=== PATIENT | female | born 1985 | race Caucasian/White ===

== ENCOUNTER 2016-07-19 15:33 | Emergency (ER) | payer MEDICAID, OTHER ==
[2016-07-19 15:44] VITALS: BP 123/83
[2016-07-19] MEDS ORDERED: diphenhydrAMINE 50 MG/ML SDV IM ONE (16:23)
[2016-07-19] MEDS ORDERED: Ketorolac 60 MG/2 ML SDV IM ONE (16:23)
[2016-07-19] MEDS ORDERED: Metoclopramide 10 MG/2 ML SDV IM ONE (16:23)
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
[2016-07-19] MEDS ORDERED: Haloperidol Lactate 5 MG/ML SDV IM ONE (17:37)
== END 2016-07-19 18:00 | disposition home or self-care (01) ==
LOC: JD.ED 15:33
DX: G43.909 Migraine, unspecified, not intractable, without status migrainosus (principal); F17.210 Nicotine dependence, cigarettes, uncomplicated; Z79.899 Other long term (current) drug therapy; Z87.440 Personal history of urinary (tract) infections; Z98.890 Other specified postprocedural states; Z90.89 Acquired absence of other organs
CPT/HCPCS: 96372; 99284; J1200; J1630; J1885; J2765; 99283

== ENCOUNTER 2016-07-20 16:08 | Emergency (ER) | payer MEDICAID, OTHER ==
[2016-07-20 16:20] VITALS: BP 125/93
--- NOTE | 2016-07-20 17:07 | EDM.PDOC ---
ED HPI LOWER BACK PAIN/INJURY - General Chief Complaint: Back Pain or Injury Stated Complaint: BACK PAIN Time Seen by Provider: 07/20/16 17:07 Source of Information: Reports: Patient History Limitations: Reports: No limitations - History of Present Illness INITIAL COMMENTS - FREE TEXT/NARRATIVE: 31-year-old female reports to the ED after reportedly falling down her basement stairs .She states they are wooden and carpeted.she states she did bang the back of her head but did not lose consciousness. Lost her pain is centered over her lumbar spine and upper sacrum. States that she rolled down the latter part of the stairs her left knee came in contact with the wall quite hard causing pain in her left knee. Injury occurred approximately 5 hours ago. She has no nausea vomiting or visual changes. No pain in her neck. She states her back pain is settled down quite a bit over the last several years and she rarely a stick medicine other than Naprosyn. She has taken Naprosyn today with a Tylenol No. 3 tablet for pain relief. Pain is getting worse. Symptom Onset Date: 07/20/16 Symptom Onset Time: 13:00 Timing/Duration: Reports: Hour(s): Location: Reports: lower Quality: Reports: Ache, Dull, Throbbing Severity: moderate Place of Occurrence: home Improves with: Reports: Rest Worsens with: Reports: Movement Context: Reports: fall (fell down a flight of basement stairs she estimates about 10-12 stairs.) Associated Symptoms: Denies: Chest pain, Constipation, Cough, Diaphoresis, Difficulty walking, Fever/chills, Headache, Loss of appetite, Malaise, Nausea/ vomiting, Paresthesias, Problems urinating, Rash, Seizure, Shortness of breath, Syncope, Weakness 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), Other (see below) (one Tylenol #3 to) - Related Data Allergies/ADRs: Allergies Allergy/AdvReac Type Severity Reaction Status Date / Time No Known Allergies Allergy Verified 07/20/16 16:15 Home Meds: Home Meds Sertraline [Zoloft] 200 mg PO BEDTIME 12/31/14 [History] risperiDONE 4 mg PO DAILY 03/13/15 [History] Baclofen 10 mg PO TID 11/16/15 [History] oxyCODONE HCl/Acetaminophen [Percocet 5-325 mg Tablet] 1 - 2 each PO Q4H PRN # 20 tablet 07/20/16 [Rx] Past Medical History - Past Health History Medical/Surgical History: Denies Medical/Surgical History HEENT History: Reports: Impaired vision, Other (see below) Other HEENT History: Wears contacts. States had gum disease, states has dentures "but they don't fit right. 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, Musculoskeletal History: Reports: Back pain, chronic Neurological History: Reports: Headaches, chronic, Migraines Psychiatric History: Reports: Bipolar, Depression, Schizophrenia Other Oncologic History: lump removed from right breast, not CA - Past Surgical History HEENT Surgical History: Reports: Tonsillectomy Female Surgical History: Reports: section Other Female Surgeries/Procedures: laproscopy for endometriosis Social & Family History - Family History Family Medical History: Noncontributory - Tobacco Use Smoking Status *Q: Current Every Day Smoker Years of Tobacco use: 15 Packs/Tins Daily: 0.5 Used Tobacco, but Quit: No Second Hand Smoke Exposure: No - Caffeine Use Caffeine Use: Reports: Energy drinks, Soda - Alcohol Use Days Per Week of Alcohol Use: 0 - Recreational Drug Use Recreational Drug Use: Yes Drug Use in Last 12 Months: Yes Recreational Drug Type: Reports: Marijuana/Hashish Recreational Drug Use Frequency: Socially Recreational Drug Last Use: last week - Living Situation & Occupation Living situation: Reports: ED ROS GENERAL - Review of Systems Review Of Systems: See Below Constitutional: Denies: fever, chills, malaise, weakness, fatigue HEENT: Reports: No symptoms. Denies: Vision change Respiratory: Reports: No Symptoms Cardiovascular: Reports: No symptoms Endocrine: Reports: no symptoms GI/Abdominal: Reports: No symptoms : Reports: incontinence Musculoskeletal: Reports: back pain (low back pain), other (left knee pain) Skin: Reports: no symptoms Neurological: Reports: Headache (mild headache at this time) Psychiatric: Reports: No symptoms Hematologic/Lymphatic: Reports: no symptoms Immunologic: Reports: no symptoms ED EXAM,LOWER BACK PAIN/INJURY - Physical Exam Exam: See Below Exam Limited By: No limitations General Appearance: alert, WD/WN, moderate distress (seems to be in moderate amount of back pain.) Eye Exam: bilateral eye: normal inspection Ears: normal TMs Throat/Mouth: Normal inspection, Normal lips, Normal teeth, Normal oropharynx Head: atraumatic, normocephalic Neck: normal inspection, supple, non-tender, full range of motion. No: lymphadenopathy (L), lymphadenopathy (R) Respiratory/Chest: no respiratory distress, lungs clear, normal breath sounds, no accessory muscle use, other Cardiovascular: normal peripheral pulses (no chest wall tenderness.), regular rate, rhythm, no edema, no murmur GI/Abdominal: normal bowel sounds, soft, non tender, no organomegaly, no distention Back Exam: other (no abrasions or contusions. Pain throughout the spinous processes of T12-L1. Worse pain is at L4-L5 bilaterally particularly over both facet joints. There is no paraspinal muscles thousand on the right as compared to the left. There is also pain over the superior half of the sacrum. SI joint pain is noted bilaterally.) Extremities: other (left knee shows abrasion over the patella and infrapatellar area. There is pain over the tibial tendon. There is prepatellar bursitis as well. There is no true effusion of the joint. The MCL LCL are intact in his cruciates are normal.) Neurological: alert, normal mood/affect, normal dorsiflexion, CN II-XII intact, normal plantar flexion, normal gait, normal reflexes, no motor/sensory deficits , oriented x 3 Psychiatric: normal affect, normal mood Skin Exam: Warm, Dry, Intact, Normal color, No rash Course - Vital Signs Last Recorded V/S: Last Vital Signs Temp 36.8 C 07/20/16 16:16 Pulse 104 H 07/20/16 16:16 Resp 16 07/20/16 16:16 BP 125/93 H 07/20/16 16:16 Pulse Ox 96 07/20/16 16:16 - Orders/Labs/Meds Orders: Active Orders 24 hr Category Date Time Status Knee 3V Lt [CR] Stat Exams 07/20/16 17:15 Taken Lumbar Spine 2 or 3V [CR] Stat Exams 07/20/16 17:15 Taken Meds: Medications Discontinued Medications Generic Name Dose Route Start Last Admin Trade Name Freq PRN Reason Stop Dose Admin Hydromorphone HCl 1 mg 07/20/16 17:14 07/20/16 17:34 Dilaudid IM 07/20/16 17:15 1 mg ONETIME ONE Administration Promethazine HCl 25 mg 07/20/16 17:14 07/20/16 17:34 Phenergan IM 07/20/16 17:15 25 mg ONETIME ONE Administration - Radiology Interpretation Free Text/Narrative:: 31-year-old female presents the ED for assessment of low back pain and left knee pain after falling down her basement stairs earlier this afternoon. She states she did hit the back of her head but did not lose consciousness. These most the pain is in her lumbar spine and left knee. On exam she has full range of motion of her neck. No chest wall injuries. No injuries to the thoracic spine lumbar spine shows pain primarily L4-L5 facet joints bilaterally with paraspinal muscle spasm on the right than on the left. Per the sacrum is also tender to palpation without abrasions or contusions. Both SI joints superiorly are tender to deep palpation. Left knee shows abrasion over the patella. There is slight bogginess of the prepatellar bursa. There is some swelling and contusion to the tibial tuberosity and tibial tendon area. It is painful to fully extend the knee and unable to fully flex it past 90 either. Clinically no internal derangement of the knee with effusion or ligament laxity. Plan x- rays of the lumbar spine and left knee to be done.Given an IM injection of Dilaudid 1mg with Phenergan 25mg IM for acute pain releif. - Re-Assessments/Exams Free Text/Narrative Re-Assessment/Exam: 07/20/16 18:03x-rays of the lumbar spine do not reveal any deformities the spinous processes or transverse processes. No evidence of compression fractures. Also the sacrum appears normal. X-rays of the left knee are completely normal. Patient advised to expect increased stiffness and soreness to develop over the next 48 hours from the fall. Ice pack to the area for one half hour of every 4 hours today and tomorrow.continue Aleve 2 tablets every 8 hours to relieve pain and inflammation. Percocet tabs 5 325 one or 2 every 4-6 hours as needed for pain not controlled by Aleve alone. Departure - Departure Time of Disposition: 18:11 Disposition: Home, Self-Care 01 Condition: fair Clinical Impression: Strain of lumbar spine Qualifiers: Encounter type: initial encounter Qualified Code(s): S39.012A - Strain of muscle, fascia and tendon of lower back, initial encounter Contusion of left knee and lower leg Qualifiers: Encounter type: initial encounter Qualified Code(s): S80.02XA - Contusion of left knee, initial encounter Prescriptions: oxyCODONE HCl/Acetaminophen [Percocet 5-325 mg Tablet] 1 - 2 each PO Q4H PRN # 20 tablet PRN Reason: pain relief. Referrals: Riya Clemons MD [Primary Care Provider] - Forms: ED Department Discharge Additional Instructions: evaluation in the emergency room today in regards to injuries sustained from a fall down basement stairs. Blunt trauma to the lumbar spine( lower back) and upper sacrum have occurred. X-rays of the area do not reveal any broken bones. There is increased paraspinal muscle spasm on the right side as compared to the left on exam. Expect the low back to be more tender and sore over the next 24- 48 hours. Treatment is ice pack to the area for one half hour of every 4 hours today and tomorrow. Continue Aleve 2 tablets every 8 hours to relieve pain and inflammation. Percocet tabs 5 /325 one or 2 every 4-6 hours for pain not controlled by Aleve alone.injury also occurred to the left knee during the fall down the stairs with blunt trauma to the knee In the prepatellar bursa which lives under the skin on top of the kneecap. Also contusion to the tibial tendon which is the tendon between the kneecap in the upper leg bone. X-ray of the knee does not reveal any bony injuries. Exam did not reveal any internal derangement of the knee. Expect any to be stiff and sore for between 3 and 7 days. Again ice pack to the area for one half hour of every 4 hours for today and tomorrow would be advised. Pain medications as needed. - My Orders Last 24 Hours: My Active Orders 07/20/16 17:15 Knee 3V Lt [CR] Stat Lumbar Spine 2 or 3V [CR] Stat - Assessment/Plan Last 24 Hours: My Active Orders 07/20/16 17:15 Knee 3V Lt [CR] Stat Lumbar Spine 2 or 3V [CR] Stat
[2016-07-20] MEDS ORDERED: HYDROmorphone 1 MG/ML Syringe IM ONE (17:14)
[2016-07-20] MEDS ORDERED: Promethazine 25 MG/ML SDV IM ONE (17:14)
--- NOTE | 2016-07-21 16:19 | CR ---
Lumbar spine: AP, lateral and coned down lateral views centered to the lumbosacral junction were obtained. Comparison: No previous study. Minimal anterior osteophyte noted off the anterior and superior endplate of L4. Vertebral body heights and disc spaces are maintained. Pedicles as well as transverse and spinous processes are intact. Sacroiliac joints are within normal limits. No fracture or subluxation is seen. Impression: 1. Minimal endplate osteophyte off of L4 as noted above. 2. Three-view lumbar spine study is otherwise unremarkable. Diagnostic code #2
--- NOTE | 2016-07-21 16:19 | CR ---
Left knee: AP, lateral and sunrise patellar views of the left knee were obtained. Comparison: No previous knee study. Medial and lateral joint spaces are maintained in height. Patellofemoral joint is unremarkable. No joint effusion is seen. No acute fracture or other bony abnormality is appreciated. Impression: 1. No abnormality is identified on three-view left knee exam. Diagnostic code #1
== END 2016-07-20 18:30 | disposition home or self-care (01) ==
LOC: JD.ED 16:08
DX: S39.012A Strain of muscle, fascia and tendon of lower back, initial encounter (principal); S80.02XA Contusion of left knee, initial encounter; F31.9 Bipolar disorder, unspecified; F20.9 Schizophrenia, unspecified; Z98.890 Other specified postprocedural states; Z79.899 Other long term (current) drug therapy; W10.8XXA Fall (on) (from) other stairs and steps, initial encounter; Y92.009 Unspecified place in unspecified non-institutional (private) residence as the place of occurrence of the external cause
CPT/HCPCS: 72100; 73562; 96372; 99283; J1170; J2550; 99284

== ENCOUNTER 2016-07-26 14:01 | Emergency (ER) | payer MEDICAID, OTHER ==
[2016-07-26 14:25] VITALS: BP 118/78
--- NOTE | 2016-07-26 14:38 | EDM.PDOC ---
ED HPI LOWER BACK PAIN/INJURY - General Chief Complaint: Back Pain or Injury Stated Complaint: BACK PAIN/ R LEG PAIN Time Seen by Provider: 07/26/16 14:19 Source of Information: Reports: Patient History Limitations: Reports: No limitations - History of Present Illness INITIAL COMMENTS - FREE TEXT/NARRATIVE: Patient is a 31-year-old female presents ED complaining of lower back and right buttocks pain. Patient states July 20, 2016 she slid down 13 stairs on her back injuring the affected area and knee. She was seen in the ED and had x- rays obtained with no acute bony abnormalities noted. She was discharged with Percocet 5/325 #20. States today while walking down the same stairs she stepped on a shoe causing her to slip and fall on her back sliding down 3 stairs. Aggravating previous injury. Patient states the pain to her lower back and right buttocks are minimal in comparison to initial injury. She took the last of her Percocet tabs last night. She continues taking naproxen with minimal relief. She is requesting new prescription for Percocet tabs. She denies any numbness or tingling, saddle anesthesia, incontinence to urine or stool, weakness, or prior history of herniated disc or back surgeries. Currently states pain is a 7/10. 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 (naproxen), Other (see below) (percocet) - Related Data Allergies/ADRs: Allergies Allergy/AdvReac Type Severity Reaction Status Date / Time No Known Allergies Allergy Verified 07/26/16 14:05 Home Meds: Home Meds Sertraline [Zoloft] 200 mg PO BEDTIME 12/31/14 [History] risperiDONE 4 mg PO DAILY 03/13/15 [History] Baclofen 10 mg PO TID 11/16/15 [History] oxyCODONE HCl/Acetaminophen [Percocet 5-325 mg Tablet] 1 - 2 each PO Q4H PRN # 20 tablet 07/20/16 [Rx] Past Medical History - Past Health History Medical/Surgical History: Denies Medical/Surgical History HEENT History: Reports: Impaired vision, Other (see below) Other HEENT History: Wears contacts. States had gum disease, states has dentures "but they don't fit right. 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: Reports: Endometriosis, Musculoskeletal History: Reports: Back pain, chronic Neurological History: Reports: Headaches, chronic, Migraines Psychiatric History: Reports: Bipolar, Depression, Schizophrenia Other Oncologic History: lump removed from right breast, not CA - Past Surgical History HEENT Surgical History: Reports: Tonsillectomy Female Surgical History: Reports: section Other Female Surgeries/Procedures: laproscopy for endometriosis Social & Family History - Family History Family Medical History: Noncontributory - Tobacco Use Smoking Status *Q: Current Every Day Smoker Years of Tobacco use: 15 Packs/Tins Daily: 1 Used Tobacco, but Quit: No Second Hand Smoke Exposure: No - Caffeine Use Caffeine Use: Reports: Coffee - Alcohol Use Days Per Week of Alcohol Use: 0 - Recreational Drug Use Recreational Drug Use: Yes Drug Use in Last 12 Months: Yes Recreational Drug Type: Reports: Marijuana/Hashish Recreational Drug Use Frequency: Rarely Recreational Drug Last Use: last week - Living Situation & Occupation Living situation: Reports: ED ROS GENERAL - Review of Systems Review Of Systems: See Below Constitutional: Reports: no symptoms HEENT: Reports: No symptoms Respiratory: Reports: No Symptoms Cardiovascular: Reports: No symptoms GI/Abdominal: Reports: No symptoms Musculoskeletal: Reports: back pain (low back/buttocks). Denies: neck pain, shoulder pain, arm pain, hand pain, leg pain, joint pain (no hip pain), joint swelling, muscle pain, muscle stiffness Skin: Reports: no symptoms Neurological: Denies: Dizziness, Headache, Numbness, Paresthesia, Pre-Existing Deficit, Tingling, Difficulty Walking ED EXAM,LOWER BACK PAIN/INJURY - Physical Exam Exam: See Below Exam Limited By: No limitations General Appearance: alert, WD/WN, no apparent distress, other (Patient is sitting upright in bed with legs crossed in seated position. ) Ears: hearing grossly normal Nose: normal inspection Throat/Mouth: Normal voice, No airway compromise Head: atraumatic, normocephalic Neck: normal inspection, supple, non-tender, full range of motion. No: lymphadenopathy (L), lymphadenopathy (R) Respiratory/Chest: no respiratory distress, lungs clear, normal breath sounds, no accessory muscle use, chest non-tender Cardiovascular: normal peripheral pulses, regular rate, rhythm GI/Abdominal: normal bowel sounds, soft, non tender, no organomegaly, no distention Back Exam: normal inspection, full range of motion, other (midline low back pain with palpation with no deformity noted. Patient did not come off of the pe) Extremities: normal inspection, normal range of motion, non-tender, no pedal edema Neurological: alert, normal mood/affect, normal dorsiflexion, CN II-XII intact, normal plantar flexion, normal gait, normal reflexes, no motor/sensory deficits , oriented x 3. No: difficulty walking (Patient got up from the bed and ambulated with no signs of increased pain or difficulties. No limp was present. ) Psychiatric: normal affect, normal mood Skin Exam: Warm, Dry, Intact, Normal color, No rash Course - Vital Signs Last Recorded V/S: Last Vital Signs Temp 98 F 07/26/16 14:07 Pulse 85 07/26/16 14:07 Resp 20 07/26/16 14:07 BP 118/78 07/26/16 14:07 Pulse Ox 99 07/26/16 14:07 - Re-Assessments/Exams Free Text/Narrative Re-Assessment/Exam: 07/26/16 14:44 Examination did not reveal any concerning finding requiring further studies. Patient had lumbar x-ray after initial injury 07/20/16 with no acute findings noted. Pain today is minimal in comparison. She received a prescription for percocet 5-325 #10. Patient has taken all her Percocet tabs as of last night. Continues to take naproxen with minimal relief. When patient was being triaged she did not reveal she recently filled a prescription for Tylenol #3 July 25 2016. This was documented in the [place] board of pharmacy controlled substance log. It states it was filled but the patient states Medicaid did not pay for it. She did not receive the prescription. In addition she did not share she is on clonazepam 1 mg tablet and received 60 tabs on July 24, 2016. She states she forgot to mention this medication. Patient has been prescribed 83 different controlled substances via 19 prescribers over 3 years span. I instructed her that narcotics are required at this time. I offered Toradol injection to which she refused. Patient left the ED prior to receiving discharge instructions to Departure - Departure Time of Disposition: 14:34 Disposition: Home, Self-Care 01 Condition: good Clinical Impression: Drug-seeking behavior Lower back pain Qualifiers: Chronicity: acute Back pain laterality: right Sciatica presence: without sciatica Qualified Code(s): M54.5 - Low back pain Contusion Qualifiers: Encounter type: initial encounter Contusion area: lower back Qualified Code(s) : S30.0XXA - Contusion of lower back and pelvis, initial encounter Instructions: Muscle Strain, [id number], Back Pain, Adult, [id number], Back Injury Prevention, [id number] Referrals: Riya Clemons MD [Primary Care Provider] - Forms: ED Department Discharge Additional Instructions: As discussed no narcotic medications are required. Take ibuprofen and tylenol in alternating fashion for pain. Utilize ice and heat in alternating fashion four to six times daily as needed. Refrain from any activities that cause worsening pain. Follow up with PCP as needed for reevaluation in the next week. Return to the E.D. if you develop weakness, numbness/tingling,or incontinence to urine/stool.
== END 2016-07-26 14:40 | disposition home or self-care (01) ==
LOC: JD.ED 14:01
DX: S30.0XXA Contusion of lower back and pelvis, initial encounter (principal); Z76.5 Malingerer [conscious simulation]; F31.9 Bipolar disorder, unspecified; F20.9 Schizophrenia, unspecified; Z98.890 Other specified postprocedural states; Z79.899 Other long term (current) drug therapy; F17.210 Nicotine dependence, cigarettes, uncomplicated; W10.8XXA Fall (on) (from) other stairs and steps, initial encounter; Y92.009 Unspecified place in unspecified non-institutional (private) residence as the place of occurrence of the external cause
CPT/HCPCS: 99282; 99284

== ENCOUNTER 2016-11-13 14:16 | Emergency (ER) | payer MEDICAID, OTHER ==
[2016-11-13 14:34] VITALS: BP 132/96
--- NOTE | 2016-11-13 15:14 | EDM.PDOC ---
ED HPI GENERAL MEDICAL PROBLEM - General Chief Complaint: ENT Problem Stated Complaint: GUM PAIN Time Seen by Provider: 11/13/16 14:45 Source of Information: Reports: Patient History Limitations: Reports: No Limitations - History of Present Illness INITIAL COMMENTS - FREE TEXT/NARRATIVE: Patient is a 31-year-old female with a history of poor dentition requiring removal of all her teeth to the upper and lower palate. States this past week some chips of teeth removed from her lower palate on the right front side. States since then has had some mild increased swelling and pain with chewing. She was prescribed amoxicillin by the dentist to which she's been taking normally. She questions that there may be an infection present. Next appointment that this is in 2 weeks. Otherwise patient has no additional complaints at this time. Right Lower Oral/Mouth Pain Score (Numeric/FACES): 4 - Related Data Allergies Allergy/AdvReac Type Severity Reaction Status Date / Time No Known Allergies Allergy Verified 11/13/16 14:33 Home Meds: Home Meds Sertraline [Zoloft] 200 mg PO BEDTIME 12/31/14 [History] risperiDONE 4 mg PO DAILY 03/13/15 [History] Baclofen 10 mg PO TID 11/16/15 [History] Amoxicillin 1 tab PO DAILY 11/13/16 [History] ClonazePAM [KlonoPIN] 1 tab PO BEDTIME 11/13/16 [History] traMADol [Ultram] 50 mg PO Q6H PRN #6 tablet 11/13/16 [Rx] Past Medical History - Past Health History Medical/Surgical History: Denies Medical/Surgical History HEENT History: Reports: Impaired Vision, Other (See Below) Other HEENT History: Wears contacts. States had gum disease, states has dentures "but they don't fit right. 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, Musculoskeletal History: Reports: Back Pain, Chronic Neurological History: Reports: Headaches, Chronic, Migraines Psychiatric History: Reports: Bipolar, Depression, Schizophrenia Other Oncologic History: lump removed from right breast, not CA - Past Surgical History HEENT Surgical History: Reports: Adenoidectomy, Tonsillectomy GI Surgical History: Reports: Other (See Below) Other GI Surgeries/Procedures: laparoscopy Female Surgical History: Reports: Section Social & Family History - Family History Family Medical History: Noncontributory - Tobacco Use Smoking Status *Q: Current Every Day Smoker Years of Tobacco use: 15 Packs/Tins Daily: 0.5 Used Tobacco, but Quit: No Second Hand Smoke Exposure: No - Caffeine Use Caffeine Use: Reports: Soda - Alcohol Use Days Per Week of Alcohol Use: 0 - Recreational Drug Use Recreational Drug Use: Yes Drug Use in Last 12 Months: Yes Recreational Drug Type: Reports: Marijuana/Hashish Recreational Drug Use Frequency: Rarely Recreational Drug Last Use: last week - Living Situation & Occupation Living situation: Reports: ED ROS ENT - Review of Systems Review Of Systems: ROS reveals no pertinent complaints other than HPI. ED EXAM, ENT - Physical Exam Exam: See Below Exam Limited By: No Limitations General Appearance: Alert, WD/WN, No Apparent Distress Ears: Hearing Grossly Normal Nose: Normal Inspection Mouth/Throat: Normal Inspection, Normal Oropharynx, Other (gum pain right lower/ front gum. No swelling or abscess, redness present. ). No: Dental Abcess, Dental Pain, Dry Mucous Membrane, Gum Swelling Neck: Normal Inspection, Supple, Non-Tender Respiratory/Chest: No Respiratory Distress, No Accessory Muscle Use Cardiovascular: Normal Peripheral Pulses, Regular Rate, Rhythm Neurological: Alert, Oriented, CN II-XII Intact Psychiatric: Normal Affect, Normal Mood Skin: Warm, Dry, Intact, Normal Color Course - Vital Signs Last Recorded V/S: Last Vital Signs Temp 97.9 F 11/13/16 14:30 Pulse 71 11/13/16 14:30 Resp 16 11/13/16 14:30 BP 132/96 H 11/13/16 14:30 Pulse Ox 99 11/13/16 14:30 - Re-Assessments/Exams Free Text/Narrative Re-Assessment/Exam: Will discharge patient with instructions as documented. Departure - Departure Time of Disposition: 15:15 Disposition: Home, Self-Care 01 Condition: Good Clinical Impression: Pain of gingiva - Discharge Information Prescriptions: traMADol [Ultram] 50 mg PO Q6H PRN #6 tablet PRN Reason: Pain (Moderate 4-6) Referrals: Riya Clemons MD [Primary Care Provider] - Forms: ED Department Discharge Additional Instructions: Take the tramadol as prescribed with tylenol and ibuprofen as discussed. See your dentist for reevaluation as needed. Refrain from any aggravating factors. Return to the E.D. for any new or worsening symptoms.
== END 2016-11-13 15:25 | disposition home or self-care (01) ==
LOC: JD.ED 14:16
DX: K06.8 Other specified disorders of gingiva and edentulous alveolar ridge (principal); F17.210 Nicotine dependence, cigarettes, uncomplicated; F31.9 Bipolar disorder, unspecified; Z87.440 Personal history of urinary (tract) infections; Z98.890 Other specified postprocedural states; Z79.2 Long term (current) use of antibiotics; Z79.899 Other long term (current) drug therapy
CPT/HCPCS: 99283

== ENCOUNTER 2016-12-05 15:24 | Emergency (ER) | payer MEDICAID, OTHER ==
[2016-12-05 15:32] VITALS: BP 122/77
[2016-12-05] MEDS ORDERED: Ketorolac 60 MG/2 ML SDV IM ONE (15:47)
[2016-12-05] MEDS ORDERED: Ondansetron 4 MG Tab.DIS PO ONE (15:47)
--- NOTE | 2016-12-05 15:53 | EDM.PDOC ---
ED HPI GENERAL MEDICAL PROBLEM - General Chief Complaint: Headache Stated Complaint: Headache Time Seen by Provider: 12/05/16 15:35 Source of Information: Reports: Patient, RN Notes Reviewed History Limitations: Reports: No Limitations - History of Present Illness INITIAL COMMENTS - FREE TEXT/NARRATIVE: 31 year old female presents to the ED with two day history of frontal headache with associated nausea. She denies fever, chills, sweats, neck pain, photophobia , phonophobia, vomiting, weakness in extremities, dizziness, difficulty walking , speech changes. She has a history of migraine headaches and was on a preventative medications but this was stopped due to reaction with her bipolar medications. She has an appointment to see her PCP Dr. Echeverria on 12/15/16. She is requesting something non-sedating for pain and then would like to go home and rest. Headache Pain Score (Numeric/FACES): 10 - Related Data Allergies Allergy/AdvReac Type Severity Reaction Status Date / Time tramadol Allergy Stomach Verified 12/05/16 15:31 Upset Home Meds: Home Meds Sertraline [Zoloft] 200 mg PO BEDTIME 12/31/14 [History] risperiDONE 4 mg PO DAILY 03/13/15 [History] Baclofen 20 mg PO TID 11/16/15 [History] ClonazePAM [KlonoPIN] 1 tab PO BEDTIME 11/13/16 [History] Butalbital/Aspirin/Caffeine [Fiorinal 50-325-40 MG] 1 - 2 each PO Q4H PRN #15 capsule MDD 6 12/05/16 [Rx] Past Medical History - Past Health History Medical/Surgical History: Denies Medical/Surgical History HEENT History: Reports: Impaired Vision, Other (See Below) Other HEENT History: Wears contacts. States had gum disease, states has dentures "but they don't fit right. 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, Musculoskeletal History: Reports: Back Pain, Chronic Neurological History: Reports: Headaches, Chronic, Migraines Psychiatric History: Reports: Bipolar, Depression, Schizophrenia Other Oncologic History: lump removed from right breast, not CA - Past Surgical History HEENT Surgical History: Reports: Adenoidectomy, Tonsillectomy GI Surgical History: Reports: Other (See Below) Other GI Surgeries/Procedures: laparoscopy Female Surgical History: Reports: Section Social & Family History - Family History Family Medical History: Noncontributory - Tobacco Use Smoking Status *Q: Current Every Day Smoker Years of Tobacco use: 15 Packs/Tins Daily: 0.5 Used Tobacco, but Quit: No Second Hand Smoke Exposure: No - Caffeine Use Caffeine Use: Reports: Soda - Alcohol Use Days Per Week of Alcohol Use: 0 - Recreational Drug Use Recreational Drug Use: Yes Drug Use in Last 12 Months: Yes Recreational Drug Type: Reports: Marijuana/Hashish Recreational Drug Use Frequency: Rarely Recreational Drug Last Use: last week - Living Situation & Occupation Living situation: Reports: ED ROS GENERAL - Review of Systems Review Of Systems: See Below Constitutional: Reports: No Symptoms. Denies: Fever, Chills, Diaphoresis HEENT: Reports: No Symptoms. Denies: Sinus Problem, Vertigo, Vision Change Respiratory: Reports: No Symptoms. Denies: Shortness of Breath Cardiovascular: Reports: No Symptoms. Denies: Chest Pain GI/Abdominal: Reports: Nausea. Denies: Vomiting Neurological: Reports: Headache. Denies: Confusion, Dizziness, Numbness, Tingling, Trouble Speaking, Difficulty Walking, Weakness - Physical Exam Exam: See Below Exam Limited By: No Limitations General Appearance: Alert, WD/WN, Mild Distress Eye Exam: Bilateral Eye: EOMI, Normal Inspection, PERRL Throat/Mouth: Normal Inspection, Normal Oropharynx Head Exam: Atraumatic, Normocephalic Neck: Normal Inspection, Supple, Non-Tender, Full Range of Motion Respiratory/Chest: No Respiratory Distress, Lungs Clear, Normal Breath Sounds Cardiovascular: Regular Rate, Rhythm GI/Abdominal: Normal Bowel Sounds, Soft, Non-Tender Neuro Exam (Abbreviated): Alert, Oriented, Normal Cognition, Normal Gait, No Motor/Sensory Deficits, Other (cerebellar testing intact ) Course - Vital Signs Last Recorded V/S: Last Vital Signs Temp 98.5 F 12/05/16 15:29 Pulse 100 12/05/16 15:29 Resp 18 12/05/16 15:29 BP 122/77 12/05/16 15:29 Pulse Ox 100 12/05/16 15:29 - Orders/Labs/Meds Meds: Medications Discontinued Medications Generic Name Dose Route Start Last Admin Trade Name Freq PRN Reason Stop Dose Admin Ketorolac Tromethamine 60 mg 12/05/16 15:47 Toradol IM 12/05/16 15:48 ONETIME ONE Ondansetron HCl 4 mg 12/05/16 15:47 Zofran Odt PO 12/05/16 15:48 ONETIME ONE - Re-Assessments/Exams Free Text/Narrative Re-Assessment/Exam: Neuro exam today is normal. Imaging is not indicated. Treated with Toradol and Zofran. She will be discharged home with a prescription for Fioricet. Instructed to f/u with her PCP as planned. Departure - Departure Time of Disposition: 15:50 Disposition: Home, Self-Care 01 Condition: Good Clinical Impression: Migraine, Strain of flank - Discharge Information Prescriptions: Butalbital/Aspirin/Caffeine [Fiorinal 50-325-40 MG] 1 - 2 each PO Q4H PRN #15 capsule MDD 6 PRN Reason: Headache Referrals: Riya Clemons MD [Primary Care Provider] - Forms: ED Department Discharge Additional Instructions: Go home and rest in a dark quiet environment Drink plenty of fluids You can try Benadryl 1-2 tabs every 6hours as needed along with Fioricet 1-2 tabs every 4-6 hours as needed. Follow-up with Dr. Echeverria as scheduled
== END 2016-12-05 16:05 | disposition home or self-care (01) ==
LOC: JD.ED 15:24
DX: G43.909 Migraine, unspecified, not intractable, without status migrainosus (principal); S39.011A Strain of muscle, fascia and tendon of abdomen, initial encounter; F17.210 Nicotine dependence, cigarettes, uncomplicated; Z88.5 Allergy status to narcotic agent; Z79.899 Other long term (current) drug therapy; Z87.440 Personal history of urinary (tract) infections; Z98.890 Other specified postprocedural states; X58.XXXA Exposure to other specified factors, initial encounter
CPT/HCPCS: 96372; 99283; A9270; J1885

== ENCOUNTER 2016-12-09 16:02 | Emergency (ER) | payer MEDICAID, OTHER ==
[2016-12-09] MEDS ORDERED: Ondansetron 4 MG Tab.DIS PO ONE (16:59)
[2016-12-09] MEDS ORDERED: diphenhydrAMINE 50 MG/ML SDV IM ONE (16:59)
[2016-12-09] MEDS ORDERED: Ketorolac 60 MG/2 ML SDV IM ONE (16:59)
[2016-12-09] MEDS ORDERED: Haloperidol Lactate 5 MG/ML SDV IM ONE (16:59)
--- NOTE | 2016-12-09 17:05 | EDM.PDOC ---
ED HPI GENERAL MEDICAL PROBLEM - General Chief Complaint: Headache Stated Complaint: HEADACHE/VOMITING Time Seen by Provider: 12/09/16 16:48 Source of Information: Reports: Patient History Limitations: Reports: No Limitations - History of Present Illness INITIAL COMMENTS - FREE TEXT/NARRATIVE: Patient is a 31-year-old female who presents to the ED complaining of a severe migraine headache that started at approximately 7:00 this morning. Pain is located to the top and posterior aspect of her head. Headache is similar from previous episodes. Denies a thunderclap headache. Denies Worse headache of her life. Denies Numbness/tingling, weakness, vision changes, or fever. Pain is rated 8 out of 10. There's been some nausea and also vomiting. She has taken Tylenol and Fioricet with no relief. She denies being . Headache Pain Score (Numeric/FACES): 8 - Related Data Allergies Allergy/AdvReac Type Severity Reaction Status Date / Time tramadol Allergy Stomach Verified 12/05/16 15:31 Upset Home Meds: Home Meds Sertraline [Zoloft] 200 mg PO BEDTIME 12/31/14 [History] risperiDONE 4 mg PO DAILY 03/13/15 [History] Baclofen 20 mg PO TID 11/16/15 [History] ClonazePAM [KlonoPIN] 1 tab PO BEDTIME 11/13/16 [History] Butalbital/Aspirin/Caffeine [Fiorinal 50-325-40 MG] 1 - 2 each PO Q4H PRN #15 capsule MDD 6 12/05/16 [Rx] Past Medical History - Past Health History Medical/Surgical History: Denies Medical/Surgical History HEENT History: Reports: Impaired Vision, Other (See Below) Other HEENT History: Wears contacts. States had gum disease, states has dentures "but they don't fit right. 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, Musculoskeletal History: Reports: Back Pain, Chronic Neurological History: Reports: Headaches, Chronic, Migraines Psychiatric History: Reports: Bipolar, Depression, Schizophrenia Other Oncologic History: lump removed from right breast, not CA - Past Surgical History HEENT Surgical History: Reports: Adenoidectomy, Tonsillectomy GI Surgical History: Reports: Other (See Below) Other GI Surgeries/Procedures: laparoscopy Female Surgical History: Reports: Section Social & Family History - Family History Family Medical History: Noncontributory - Tobacco Use Smoking Status *Q: Current Every Day Smoker Years of Tobacco use: 15 Packs/Tins Daily: 1 Used Tobacco, but Quit: No Second Hand Smoke Exposure: No - Caffeine Use Caffeine Use: Reports: Soda - Alcohol Use Days Per Week of Alcohol Use: 0 - Recreational Drug Use Recreational Drug Use: Yes Drug Use in Last 12 Months: Yes Recreational Drug Type: Reports: Marijuana/Hashish Recreational Drug Use Frequency: Rarely Recreational Drug Last Use: last week - Living Situation & Occupation Living situation: Reports: ED ROS GENERAL - Review of Systems Review Of Systems: ROS reveals no pertinent complaints other than HPI. - Physical Exam Exam: See Below Exam Limited By: No Limitations General Appearance: Alert, WD/WN, Moderate Distress Eye Exam: Bilateral Eye: EOMI, Normal Inspection, Nystagmus (None found), PERRL , Vision Changes (None stated) Ears: Hearing Grossly Normal Nose: Normal Inspection Throat/Mouth: Normal Voice, No Airway Compromise Head Exam: Atraumatic, Normocephalic Neck: Normal Inspection, Supple, Non-Tender, Full Range of Motion Respiratory/Chest: No Respiratory Distress, Lungs Clear, Normal Breath Sounds Cardiovascular: Normal Peripheral Pulses, Regular Rate, Rhythm Neuro Exam (Abbreviated): Alert, Oriented, CN II-XII Intact, Normal Cognition, No Motor/Sensory Deficits, Other (Cerebellar function intact) Back Exam: Normal Inspection Extremities: Normal Inspection Psychiatric: Tearful Skin Exam: Warm, Dry, Intact, Normal Color Course - Vital Signs Last Recorded V/S: Last Vital Signs Temp 97.6 F 12/09/16 16:08 Pulse 72 12/09/16 17:54 Resp 16 12/09/16 17:54 BP 99/76 12/09/16 17:54 Pulse Ox 97 12/09/16 17:54 - Orders/Labs/Meds Meds: Medications Discontinued Medications Generic Name Dose Route Start Last Admin Trade Name Freq PRN Reason Stop Dose Admin Diphenhydramine HCl 50 mg 12/09/16 16:59 12/09/16 17:10 Benadryl IM 12/09/16 17:00 50 mg ONETIME ONE Administration Haloperidol Lactate 7.5 mg 12/09/16 16:59 12/09/16 17:10 Haldol IM 12/09/16 17:00 7.5 mg ONETIME ONE Administration Ketorolac Tromethamine 60 mg 12/09/16 16:59 12/09/16 17:09 Toradol IM 12/09/16 17:00 60 mg ONETIME ONE Administration Ondansetron HCl 4 mg 12/09/16 16:59 12/09/16 17:11 Zofran Odt PO 12/09/16 17:00 4 mg ONETIME ONE Administration - Re-Assessments/Exams Free Text/Narrative Re-Assessment/Exam: Patient states this is a typical migraine for her. Ordered Haldol 7.5 mg IM, Toradol 60 mg IM, Zofran 4 mg ODT, and 50 mg IM for improvement therapy. 12/09/16 17:36 Reassessment, [place] 07/22 with no additional complaints. Will discharge patient home with instructions as documented Departure - Departure Time of Disposition: 17:37 Disposition: Home, Self-Care 01 Condition: Good Clinical Impression: Headache Qualifiers: Headache type: tension-type Headache chronicity pattern: acute headache Intractability: not intractable Qualified Code(s): G44.209 - Tension-type headache, unspecified, not intractable - Discharge Information Instructions: General Headache Without Cause, [id number] Referrals: Riya Clemons MD [Primary Care Provider] - Forms: ED Department Discharge, ED Return to Work/School Form Additional Instructions: Suggest going home and finding a dark room to sleep with no distractions. Follow -up with your PCP this week for reevaluation. Push the fluids. Utilize Tylenol and ibuprofen for discomfort. Return to ED as needed for any new or worsening symptoms.
[2016-12-09 17:56] VITALS: BP 99/76
== END 2016-12-09 17:54 | disposition home or self-care (01) ==
LOC: JD.ED 16:02
DX: G44.209 Tension-type headache, unspecified, not intractable (principal); F17.210 Nicotine dependence, cigarettes, uncomplicated; Z88.5 Allergy status to narcotic agent; Z79.899 Other long term (current) drug therapy; Z87.440 Personal history of urinary (tract) infections; Z98.890 Other specified postprocedural states
CPT/HCPCS: 96372; 99284; A9270; J1200; J1630; J1885; 99283

== ENCOUNTER 2017-01-14 16:18 | Emergency (ER) | payer MEDICAID, SELFPAY ==
[2017-01-14 16:38] VITALS: BP 106/81
--- NOTE | 2017-01-14 17:14 | EDM.PDOC ---
ED HPI GENERAL MEDICAL PROBLEM - General Chief Complaint: Back Pain or Injury Stated Complaint: FELL IN SHOWER Time Seen by Provider: 01/14/17 17:09 Source of Information: Reports: Patient History Limitations: Reports: No Limitations - History of Present Illness INITIAL COMMENTS - FREE TEXT/NARRATIVE: 31-year-old female presents for evaluation and treatment of low back pain and right hip pain. Patient reports this morning she fell in the shower around 11 AM. She states that she is shampooing her hair and some of the shampoo ran down her and causes slippery surface. She states that she landed on her right side. Reports that she landed on her right hip and tailbone. She denies any head trauma, loss of consciousness or headaches. No numbness or tingling in the right leg but states that she has pain radiating from her right side of her lower back into her right hip and down the posterior side of her right leg. No bruising, swelling or obvious deformity. She states that she is having difficulty walking due to pain. Patient reports that she went to the clinic today. She was unable to get in with her primary care provider but was able to see Nova Castle. Nova had to go home early as she was not feeling well. Patient then went to the walk-in clinic. No imaging was done. The patient states that she was told that they don' t prescribe narcotics therefore she decided not to be seen there. Patient has a past medical history of low back pain. Review the records show she has been seen here multiple times for low back pain most recently in July 2016 and March 2016. She has had x-rays done. We do not have any CTs or MRIs on file. She states that she has never had any CTs or MRIs done of her low back. 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 ESCORT: Reports: Acetaminophen, Other (see below) Other Treatments OVERSIZE LOAD PILOT ESCORT: naproxen Lower Back Pain Score (Numeric/FACES): 8 - Related Data Allergies Allergy/AdvReac Type Severity Reaction Status Date / Time tramadol Allergy Stomach Verified 01/14/17 16:29 Upset Home Meds: Home Meds Sertraline [Zoloft] 200 mg PO DAILY 12/31/14 [History] risperiDONE 4 mg PO DAILY 03/13/15 [History] Baclofen 20 mg PO TID 08/04/16 [History] ClonazePAM [KlonoPIN] 3 mg PO BEDTIME 11/13/16 [History] Ketorolac [Toradol] 10 mg PO Q6H PRN #10 tablet 01/14/17 [Rx] Naproxen 500 mg PO BID 01/14/17 [History] Past Medical History - Past Health History Medical/Surgical History: Denies Medical/Surgical History HEENT History: Reports: Impaired Vision, Other (See Below) Other HEENT History: Wears contacts. States had gum disease, states has dentures "but they don't fit right. 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: Reports: Endometriosis, Musculoskeletal History: Reports: Back Pain, Chronic Neurological History: Reports: Headaches, Chronic, Migraines Psychiatric History: Reports: Bipolar, Depression, Schizophrenia Other Oncologic History: lump removed from right breast, not CA - Past Surgical History HEENT Surgical History: Reports: Adenoidectomy, Tonsillectomy GI Surgical History: Reports: Other (See Below) Other GI Surgeries/Procedures: laparoscopy Female Surgical History: Reports: Section Social & Family History - Family History Family Medical History: Noncontributory - Tobacco Use Smoking Status *Q: Current Every Day Smoker Years of Tobacco use: 15 Packs/Tins Daily: 1 Used Tobacco, but Quit: No Second Hand Smoke Exposure: No - Caffeine Use Caffeine Use: Reports: Soda - Alcohol Use Days Per Week of Alcohol Use: 0 - Recreational Drug Use Recreational Drug Use: Yes Drug Use in Last 12 Months: Yes Recreational Drug Type: Reports: Marijuana/Hashish Recreational Drug Use Frequency: Socially Recreational Drug Last Use: last week - Living Situation & Occupation Living situation: Reports: ED ROS GENERAL - Review of Systems Review Of Systems: See Below GI/Abdominal: Denies: Stool Incontinence : Denies: Incontinence Musculoskeletal: Reports: Back Pain (reports low back and right hip pain) Neurological: Reports: Difficulty Walking. Denies: Numbness, Syncope, Tingling ED EXAM,LOWER BACK PAIN/INJURY - Physical Exam Exam: See Below Exam Limited By: No Limitations General Appearance: Alert, WD/WN, No Apparent Distress Respiratory/Chest: No Respiratory Distress Cardiovascular: Normal Peripheral Pulses, Regular Rate, Rhythm Back Exam: Normal Inspection. No: Paraspinal Tenderness, Vertebral Tenderness Extremities: Normal Inspection, Other (reports minor pain with rotation of the right hip; reports signifcant pain with palpation to the right iliac crest and the right greater trochanter) Neurological: Alert, Normal Mood/Affect, Normal Dorsiflexion, Normal Plantar Flexion, Normal Gait, Straight Leg Raise (R) (causes pain to the right low back) , Other (rotation of the right leg causes some discomfort to the right hip ) Psychiatric: Normal Affect, Normal Mood Skin Exam: Warm, Dry, Normal Color. No: Ecchymosis Course - Vital Signs Last Recorded V/S: Last Vital Signs Temp 36.3 C 01/14/17 16:33 Pulse 89 01/14/17 16:33 Resp 18 01/14/17 16:33 BP 106/81 01/14/17 16:33 Pulse Ox 98 01/14/17 16:33 - Radiology Interpretation Free Text/Narrative:: xrays of the right hip, pelvis, sacrum and coccyx shows no acute fractures or dislocations. - Re-Assessments/Exams Free Text/Narrative Re-Assessment/Exam: 01/14/17 17:40 I reviewed the xrays with the patient. No acute fractures appreciated. Patient does not have any bruising or swelling appreciated on exam. Possibly dramatizing pain with palpation. Given this patient has a documented history of drug seeking behavior and I do not see any acute injury today I will given her toradol PO tabs for pain. Discharge instructions as documented. Departure - Departure Time of Disposition: 17:42 Disposition: Home, Self-Care 01 Condition: Fair Clinical Impression: Contusion of coccyx Low back pain Qualifiers: Chronicity: acute Back pain laterality: right Sciatica presence: without sciatica Qualified Code(s): M54.5 - Low back pain - Discharge Information Prescriptions: Ketorolac [Toradol] 10 mg PO Q6H PRN #10 tablet PRN Reason: Pain Instructions: Contusion, [id number], Back Pain, Adult, [id number] Referrals: Riya Clemons MD [Primary Care Provider] - Forms: ED Department Discharge Additional Instructions: Continue on the baclofen. Follow-up with your PCP within one week for further care. For further pain medication management see your PCP. Unfortunately, we are unable to prescribe narcotic medications for chronic pain. Take the toradol as prescribed. 1 tab PO every 6 hours as needed for pain. Take OTC tylenol as needed for pain. For pain not relieved by tylenol, may take toradol for additional pain relief. Take this medication with food. Use ice or heat to the sore areas. Please return to the ER should your symptoms change or worsen.
--- NOTE | 2017-01-15 08:12 | CR ---
Pelvis and right hip: AP view of the pelvis was obtained as well as frog leg lateral view of the right hip. Comparison: No previous study. Sacroiliac joints are within normal limits. Joint spaces within both hips are preserved. No fracture or other bony abnormality is identified. Impression: 1. No abnormality is identified on AP pelvis or on frog leg lateral right hip exam. Diagnostic code #1
--- NOTE | 2017-01-15 08:12 | CR ---
Sacrum and coccyx: Three views of the sacrum and coccyx were obtained. Comparison: No prior study. Incidental phleboliths are seen within the pelvis. Sacroiliac joints are within normal limits. Sacral foramina are intact. No fracture or other abnormality is identified. Impression: 1. No abnormality is identified on three-view sacrum and coccyx study. Diagnostic code #1
== END 2017-01-14 17:55 | disposition home or self-care (01) ==
LOC: JD.ED 16:18
DX: S39.82XA Other specified injuries of lower back, initial encounter (principal); F17.210 Nicotine dependence, cigarettes, uncomplicated; F31.9 Bipolar disorder, unspecified; Z98.890 Other specified postprocedural states; Z87.440 Personal history of urinary (tract) infections; Z79.899 Other long term (current) drug therapy; Z88.5 Allergy status to narcotic agent; W18.2XXA Fall in (into) shower or empty bathtub, initial encounter
CPT/HCPCS: 72220; 72220-26; 73502-26-RT; 73502-RT; 99283

== ENCOUNTER 2017-05-27 18:11 | Emergency (ER) | payer MEDICAID, SELFPAY ==
[2017-05-27 18:30] VITALS: BP 106/82
[2017-05-27] MEDS ORDERED: Ketorolac 60 MG/2 ML SDV IM ONE (19:09)
--- NOTE | 2017-05-27 19:14 | EDM.PDOC ---
ED HPI GENERAL MEDICAL PROBLEM - General Chief Complaint: Abdominal Pain Stated Complaint: PAIN AFTER HERNIA SURGERY Time Seen by Provider: 05/27/17 18:54 Source of Information: Reports: Patient History Limitations: Reports: No Limitations - History of Present Illness INITIAL COMMENTS - FREE TEXT/NARRATIVE: The patient presents with left sided abdominal pain. She had hernia surgery last week . She was given hydrocodone for the pain. The past 2 nights her cat ran over her abdomen. She now has more pain but no pain meds. She has no nausea or vomiting. She has no drainage from her incisions. She has no fever or chills. Onset: Gradual Duration: Day(s): Location: Reports: Abdomen (left side) Quality: Reports: Sharp Severity: Moderate Improves with: Reports: None Worsens with: Reports: Movement Associated Symptoms: Reports: No Other Symptoms Abdominal Pain Score (Numeric/FACES): 6 - Related Data Allergies Allergy/AdvReac Type Severity Reaction Status Date / Time tramadol Allergy Stomach Verified 01/14/17 16:29 Upset Home Meds: Home Meds Sertraline [Zoloft] 200 mg PO DAILY 12/31/14 [History] risperiDONE 4 mg PO DAILY 03/13/15 [History] Baclofen 20 mg PO TID 11/16/15 [History] ClonazePAM [KlonoPIN] 3 mg PO BEDTIME 11/13/16 [History] Naproxen 500 mg PO BID 01/14/17 [History] oxyCODONE HCl/Acetaminophen [Percocet 5-325 mg Tablet] 1 - 2 each PO Q6HR PRN # 20 tablet 05/27/17 [Rx] Past Medical History - Past Health History Medical/Surgical History: Denies Medical/Surgical History HEENT History: Reports: Impaired Vision, Other (See Below) Other HEENT History: Wears contacts. States had gum disease, states has dentures "but they don't fit right. 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: Reports: Endometriosis, Musculoskeletal History: Reports: Back Pain, Chronic Neurological History: Reports: Headaches, Chronic, Migraines Psychiatric History: Reports: Bipolar, Depression, Schizophrenia Other Oncologic History: lump removed from right breast, not [place] - Past Surgical History HEENT Surgical History: Reports: Adenoidectomy, Tonsillectomy GI Surgical History: Reports: Hernia, Abdominal, Other (See Below) Other GI Surgeries/Procedures: laparoscopy Female Surgical History: Reports: Section Social & Family History - Family History Family Medical History: Noncontributory - Tobacco Use Smoking Status *Q: Current Every Day Smoker Years of Tobacco use: 10 Packs/Tins Daily: 1 Used Tobacco, but Quit: No Second Hand Smoke Exposure: No - Caffeine Use Caffeine Use: Reports: Soda - Alcohol Use Days Per Week of Alcohol Use: 0 - Recreational Drug Use Recreational Drug Use: Yes Drug Use in Last 12 Months: Yes Recreational Drug Type: Reports: Marijuana/Hashish Recreational Drug Use Frequency: Socially Recreational Drug Last Use: last week - Living Situation & Occupation Living situation: Reports: ED ROS GENERAL - Review of Systems Review Of Systems: See Below Constitutional: Reports: No Symptoms HEENT: Reports: No Symptoms Respiratory: Reports: No Symptoms Cardiovascular: Reports: No Symptoms Endocrine: Reports: No Symptoms GI/Abdominal: Reports: Abdominal Pain Musculoskeletal: Reports: No Symptoms ED EXAM, GI/ABD - Physical Exam Exam: See Below Exam Limited By: No Limitations General Appearance: Alert, No Apparent Distress Ears: Normal External Exam Nose: Normal Inspection Head: Atraumatic, Normocephalic Neck: Normal Inspection Respiratory/Chest: No Respiratory Distress, Lungs Clear, Normal Breath Sounds Cardiovascular: Regular Rate, Rhythm, No Edema, No Murmur GI/Abdominal Exam: Soft, No Organomegaly, No Mass, Other (Mild to moderate pain upon palpation to the left abdomen. Incision sites have no redness or drainage. ) Course - Vital Signs Last Recorded V/S: Last Vital Signs Temp 98.7 F 05/27/17 18:25 Pulse 73 05/27/17 18:25 Resp 16 05/27/17 18:25 BP 106/82 05/27/17 18:25 Pulse Ox 99 05/27/17 18:25 - Orders/Labs/Meds Orders: Active Orders 24 hr Category Date Time Status Ketorolac [Toradol] Med 05/27/17 19:09 Once 60 mg IM ONETIME ONE - Re-Assessments/Exams Free Text/Narrative Re-Assessment/Exam: 05/27/17 19:12 I ordered a shot of toradol and I will get her on some percocet. Departure - Departure Time of Disposition: 19:15 Disposition: Home, Self-Care 01 Condition: Good Clinical Impression: Abdominal pain Qualifiers: Abdominal location: left upper quadrant Qualified Code(s): R10.12 - Left upper quadrant pain - Discharge Information Prescriptions: oxyCODONE HCl/Acetaminophen [Percocet 5-325 mg Tablet] 1 - 2 each PO Q6HR PRN # 20 tablet PRN Reason: Pain Referrals: PCP,None [Primary Care Provider] - Additional Instructions: Take the percocet as needed for pain. Follow up with your surgeon as scheduled. Please return if you are worse. - My Orders Last 24 Hours: My Active Orders 05/27/17 19:09 Ketorolac [Toradol] 60 mg IM ONETIME ONE - Assessment/Plan Last 24 Hours: My Active Orders 05/27/17 19:09 Ketorolac [Toradol] 60 mg IM ONETIME ONE
== END 2017-05-27 19:27 | disposition home or self-care (01) ==
LOC: JD.ED 18:11
DX: R10.12 Left upper quadrant pain (principal); F17.210 Nicotine dependence, cigarettes, uncomplicated; Z88.5 Allergy status to narcotic agent; Z79.899 Other long term (current) drug therapy
CPT/HCPCS: 96372; 99284; J1885; 99283

== ENCOUNTER 2017-05-28 16:44 | Emergency (ER) | payer MEDICAID, SELFPAY ==
[2017-05-28 16:53] VITALS: BP 103/79
--- NOTE | 2017-05-28 17:20 | EDM.PDOC ---
ED HPI GENERAL MEDICAL PROBLEM - General Chief Complaint: Gastrointestinal Problem Stated Complaint: HERNIA PAIN Time Seen by Provider: 05/28/17 17:18 Source of Information: Reports: Patient, RN Notes Reviewed - History of Present Illness INITIAL COMMENTS - FREE TEXT/NARRATIVE: 31 year old female comes in with generalized abd pain 8 days status post hernia repair [facility], laparoscopic, outpatient basis. Has been taking percocet for pain. Was evaluated at ED last evening, given 20 percocet. Is back this evening with continued pain, nothing has changed. No fever, chills, nausea, vomiting or diarrhea. Denies being constipated. When asked why she is back states she needs more pain pills. About to run out. Abdominal Pain Score (Numeric/FACES): 5 - Related Data Allergies Allergy/AdvReac Type Severity Reaction Status Date / Time tramadol Allergy Stomach Verified 05/28/17 16:53 Upset Home Meds: Home Meds Sertraline [Zoloft] 200 mg PO DAILY 12/31/14 [History] risperiDONE 4 mg PO DAILY 03/13/15 [History] Baclofen 20 mg PO TID 11/16/15 [History] ClonazePAM [KlonoPIN] 3 mg PO BEDTIME 11/13/16 [History] Naproxen 500 mg PO BID 01/14/17 [History] oxyCODONE HCl/Acetaminophen [Percocet 5-325 mg Tablet] 1 - 2 each PO Q6HR PRN # 20 tablet 05/27/17 [Rx] Past Medical History - Past Health History Medical/Surgical History: Denies Medical/Surgical History HEENT History: Reports: Impaired Vision, Other (See Below) Other HEENT History: Wears contacts. States had gum disease, states has dentures "but they don't fit right. 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 [employer] DEPARTMENT History: Reports: Endometriosis, Musculoskeletal History: Reports: Back Pain, Chronic Neurological History: Reports: Headaches, Chronic, Migraines Psychiatric History: Reports: Bipolar, Depression, Schizophrenia Other Oncologic History: lump removed from right breast, not [place] - Past Surgical History HEENT Surgical History: Reports: Adenoidectomy, Tonsillectomy GI Surgical History: Reports: Hernia, Abdominal, Other (See Below) Other GI Surgeries/Procedures: laparoscopy Female Surgical History: Reports: Section Social & Family History - Family History Family Medical History: Noncontributory - Tobacco Use Smoking Status *Q: Current Every Day Smoker Years of Tobacco use: 15 Packs/Tins Daily: 0.7 Used Tobacco, but Quit: No Second Hand Smoke Exposure: No - Caffeine Use Caffeine Use: Reports: Soda - Alcohol Use Days Per Week of Alcohol Use: 0 - Recreational Drug Use Recreational Drug Use: Yes Drug Use in Last 12 Months: Yes Recreational Drug Type: Reports: Marijuana/Hashish Recreational Drug Use Frequency: Socially Recreational Drug Last Use: last week - Living Situation & Occupation Living situation: Reports: ED ROS GENERAL - Review of Systems Review Of Systems: See Below Constitutional: Denies: Fever, Chills, Diaphoresis HEENT: Reports: No Symptoms Respiratory: Denies: Shortness of Breath Cardiovascular: Denies: Chest Pain GI/Abdominal: Reports: Abdominal Pain. Denies: Constipation, Diarrhea, Decreased Appetite, Nausea, Vomiting Musculoskeletal: Denies: Back Pain Skin: Reports: No Symptoms Neurological: Reports: No Symptoms ED EXAM, GI/ABD - Physical Exam Exam: See Below General Appearance: Alert, No Apparent Distress Throat/Mouth: Normal Inspection, Normal Oropharynx Head: Atraumatic. No: Facial Swelling Neck: Supple, Full Range of Motion Respiratory/Chest: No Respiratory Distress, Lungs Clear, Normal Breath Sounds Cardiovascular: Regular Rate, Rhythm GI/Abdominal Exam: Soft, Tender (mild tenderness mid and L lower mid abd), Other (incision areas all healing well, no unusual erythema, warmth, no drainage , no mass palpable). No: Guarding, Rebound Back Exam: No: CVA Tenderness (L), CVA Tenderness (R) Extremities: Normal Inspection, Normal Range of Motion Neurological: Alert, Oriented, No Motor/Sensory Deficits, Other (ambulatory without difficulty) Skin Exam: Warm, Dry Course - Vital Signs Last Recorded V/S: Last Vital Signs Temp 96.9 F 05/28/17 16:50 Pulse 89 05/28/17 16:50 Resp 16 05/28/17 16:50 BP 103/79 05/28/17 16:50 Pulse Ox 98 05/28/17 16:50 - Orders/Labs/Meds Labs: Laboratory Tests 05/28/17 Range/Units 17:55 WBC 6.18 (3.98-10.04) K/mm3 RBC 4.37 (3.98-5.22) M/mm3 Hgb 13.4 (11.2-15.7) gm/L Hct 40.4 (34.1-44.9) % MCV 92.4 (79.4-94.8) fl MCH 30.7 (25.6-32.2) pg MCHC 33.2 (32.2-35.5) g/dl RDW Std Deviation 43.7 (36.4-46.3) fL Plt Count 278 (182-369) K/mm3 MPV 9.1 L (9.4-12.3) fl Neut % (Auto) 53.0 (34.0-71.1) % Lymph % (Auto) 34.3 (19.3-51.7) % [place] % (Auto) 8.3 (4.7-12.5) % Eos % (Auto) 3.9 (0.7-5.8) Baso % (Auto) 0.3 (0.1-1.2) % Neut # (Auto) 3.28 (1.56-6.13) K/mm3 Lymph # (Auto) 2.12 (1.18-3.74) K/mm3 [place] # (Auto) 0.51 H (0.24-0.36) K/mm3 Eos # (Auto) 0.24 (0.04-0.36) K/mm3 Baso # (Auto) 0.02 (0.01-0.08) K/mm3 - Re-Assessments/Exams Free Text/Narrative Re-Assessment/Exam: 05/29/17 15:17 WBC was normal. Flat and upright abd shows somewhat prominent stool gas pattern , no major dilitation, no air fluid levels. When asked why she needs more pain pills she states she "is about to run out". When asked how many she is taking she said 2 every 4 hrs. She was discharged from ED 22 hours ago. She should only have taken around 10 if taking that many which I discussed with her is way too much for 8 days post op. She should still have around 10 left. I advised cutting back to 1 q 8 hr or 1/2 q 6 to 8 hr along with 500 mg tylenol which gives her a 3 to 6 day supply which should be plenty adequate. Discharge instr. as documented. Departure - Departure Time of Disposition: 19:15 Disposition: Home, Self-Care 01 Condition: Fair Clinical Impression: Abdominal pain - Discharge Information Instructions: Constipation, Adult Referrals: Riya Clemons MD [Primary Care Provider] - Forms: ED Department Discharge Additional Instructions: Your white blood count tonight is normal, there is a lot of stool and gas in your colon, I recommend taking MiraLAX this evening to help clear out your colon, Or otherwise mag citrate. I also do recommend a stool softener once or twice daily. Drink plenty of water to maintain hydration. 2 Percocet every 4 hours is too much. I recommend backing off to one Percocet every 6-8 hours or even one half Percocet every 6-8 hours along with a 500 mg Tylenol. Follow-up clinic if not much better within 1-2 days.
--- NOTE | 2017-05-29 07:32 | CR ---
Abdomen: Supine and upright views of the abdomen were obtained. Comparison: No prior abdominal x-ray. Bowel gas pattern appears to be normal. Calcifications are seen within the left pelvis which are believed to represent phleboliths. No free air is seen. Bony structures are unremarkable. No discrete soft tissue abnormality is appreciated. Impression: 1. Nothing acute is seen on two-view abdominal x-ray. Diagnostic code #1
== END 2017-05-28 19:24 | disposition home or self-care (01) ==
LOC: JD.ED 16:44
DX: R10.84 Generalized abdominal pain (principal); Z88.5 Allergy status to narcotic agent; Z79.899 Other long term (current) drug therapy; F17.210 Nicotine dependence, cigarettes, uncomplicated
CPT/HCPCS: 36415; 74019; 74019-26; 85025; 99283; 99284

== ENCOUNTER 2017-06-02 17:33 | Emergency (ER) | payer MEDICAID, SELFPAY ==
[2017-06-02 17:50] VITALS: BP 108/77
[2017-06-02] MEDS ORDERED: Ketorolac 60 MG/2 ML SDV IM ONE (19:32)
--- NOTE | 2017-06-02 19:41 | EDM.PDOC ---
ED HPI GENERAL MEDICAL PROBLEM - General Chief Complaint: Abdominal Pain Stated Complaint: FELL ON ICE AND LANDED ON STOMACH Time Seen by Provider: 06/02/17 19:09 Source of Information: Reports: Patient History Limitations: Reports: No Limitations - History of Present Illness INITIAL COMMENTS - FREE TEXT/NARRATIVE: 31-year-old female presents for evaluation and treatment of abdominal pain. Patient reports that she had a hernia repair done here and [place] with Dr. Renee on 05-22-17. She has not yet followed up with him. He is unsure of any mesh was placed. Patient reports she was given pain medication postop. She is now out of these. She reports she has not yet followed up with her surgeon and is scheduled to do so on Friday. Patient reports today around 1500 she slipped on the ice and fell onto her abdomen. Reports she has developed significant pain around her bellybutton. She states it feels like she was "punched "in the stomach. Reports pain over 5 or 6 out of 10. She did not have any pain prior to the fall. She took naproxen prior to arrival in the ER but did not any pain relief. No nausea, vomiting or diarrhea. 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 Abdomen Pain Score (Numeric/FACES): 5 - Related Data Allergies Allergy/AdvReac Type Severity Reaction Status Date / Time tramadol Allergy Stomach Verified 06/02/17 17:45 Upset Home Meds: Home Meds Sertraline [Zoloft] 200 mg PO DAILY 12/31/14 [History] risperiDONE 4 mg PO DAILY 03/13/15 [History] Baclofen 20 mg PO TID 11/16/15 [History] ClonazePAM [KlonoPIN] 3 mg PO BEDTIME 11/13/16 [History] Naproxen 500 mg PO BID 01/14/17 [History] Past Medical History - Past Health History Medical/Surgical History: Denies Medical/Surgical History HEENT History: Reports: Impaired Vision, Other (See Below) Other HEENT History: Wears contacts. States had gum disease, states has dentures "but they don't fit right. 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: Endometriosis, Musculoskeletal History: Reports: Back Pain, Chronic Neurological History: Reports: Headaches, Chronic, Migraines Psychiatric History: Reports: Bipolar, Depression, Schizophrenia Other Oncologic History: lump removed from right breast, not CA - Past Surgical History HEENT Surgical History: Reports: Adenoidectomy, Tonsillectomy GI Surgical History: Reports: Hernia, Abdominal, Other (See Below) Other GI Surgeries/Procedures: laparoscopy Female Surgical History: Reports: Section Social & Family History - Family History Family Medical History: Noncontributory - Tobacco Use Smoking Status *Q: Current Every Day Smoker Years of Tobacco use: 15 Packs/Tins Daily: 0.5 Used Tobacco, but Quit: No Second Hand Smoke Exposure: No - Caffeine Use Caffeine Use: Reports: Energy Drinks, Soda - Alcohol Use Days Per Week of Alcohol Use: 0 - Recreational Drug Use Recreational Drug Use: Yes Drug Use in Last 12 Months: Yes Recreational Drug Type: Reports: Marijuana/Hashish Recreational Drug Use Frequency: Weekly Recreational Drug Last Use: last week - Living Situation & Occupation Living situation: Reports: ED ROS GENERAL - Review of Systems Review Of Systems: See Below GI/Abdominal: Reports: Abdominal Pain. Denies: Diarrhea, Nausea, Vomiting Skin: Reports: Wound (post surgical incisions, no change) ED EXAM, GI/ABD - Physical Exam Exam: See Below Exam Limited By: No Limitations General Appearance: Alert, WD/WN, No Apparent Distress Throat/Mouth: Normal Inspection Respiratory/Chest: No Respiratory Distress, Lungs Clear, Normal Breath Sounds Cardiovascular: Normal Peripheral Pulses, Regular Rate, Rhythm, No Murmur GI/Abdominal Exam: Normal Bowel Sounds, Soft, Tender (periumbilical) Neurological: Alert, Oriented, Normal Cognition Psychiatric: Normal Affect, Normal Mood Skin Exam: Warm, Dry, Normal Color, Ecchymosis (LLQ abd and periumbilical, post surgical), Wound/Incision (umbilical 2cm closed, welll healing, 1cm LLQ, closed , well healing) Course - Vital Signs Last Recorded V/S: Last Vital Signs Temp 36.3 C 06/02/17 17:47 Pulse 87 06/02/17 17:47 Resp 16 06/02/17 17:47 BP 108/77 06/02/17 17:47 Pulse Ox 99 06/02/17 17:47 - Orders/Labs/Meds Meds: Medications Discontinued Medications Generic Name Dose Route Start Last Admin Trade Name Freq PRN Reason Stop Dose Admin Ketorolac Tromethamine 60 mg 06/02/17 19:32 02/19/18 19:45 Toradol IM 06/02/17 19:33 60 mg ONETIME ONE Administration - Re-Assessments/Exams Free Text/Narrative Re-Assessment/Exam: 06/02/17 19:35 Patient was urged to [place] prescription drug registry. She has received 36 prescriptions from 10 different prescribers within the last year for controlled substances. Most recently received Percocet 5-325 on 05-27-17 #20. will treat her here with toradol in the ER. Follow-up with surgery for further pain control. discharge instructions as documented. Departure - Departure Time of Disposition: 19:40 Disposition: Home, Self-Care 01 Condition: Fair Clinical Impression: Abdominal pain Qualifiers: Abdominal location: left upper quadrant Qualified Code(s): R10.12 - Left upper quadrant pain - Discharge Information Instructions: Abdominal Pain, Adult, [id number] Referrals: Riya Clemons MD [Primary Care Provider] - Forms: ED Department Discharge Additional Instructions: [id number] Tylenol or Motrin as needed for pain relief. If your pain is not controlled about Tylenol or Motrin recommend contacting your surgeon and discussing further pain management with him. Please return to the ER if your symptoms change or worsen.
== END 2017-06-02 19:47 | disposition home or self-care (01) ==
LOC: JD.ED 17:33
DX: S30.1XXA Contusion of abdominal wall, initial encounter (principal); F31.9 Bipolar disorder, unspecified; F17.210 Nicotine dependence, cigarettes, uncomplicated; Z79.899 Other long term (current) drug therapy; Z88.5 Allergy status to narcotic agent; W00.0XXA Fall on same level due to ice and snow, initial encounter
CPT/HCPCS: 96372; 99283; J1885

== ENCOUNTER 2017-07-27 18:27 | Emergency (ER) | payer MEDICAID, SELFPAY ==
[2017-07-27 18:53] VITALS: BP 132/90
--- NOTE | 2017-07-27 20:22 | EDM.PDOC ---
ED HPI GENERAL MEDICAL PROBLEM - General Chief Complaint: Back Pain or Injury Stated Complaint: UPPER RIGHT SHOULDER/BACK INJURY Time Seen by Provider: 07/27/17 19:10 Source of Information: Reports: Patient, Old Records History Limitations: Reports: No Limitations - History of Present Illness INITIAL COMMENTS - FREE TEXT/NARRATIVE: The patient states that she was playing-wrestling with her boyfriend last night , and twisted the right side of her mid-back. The pain is "killing me!". She says that she can't sleep. She states that the pain is not modifiable with breathing or bodily position. Review of the prior medical records indicates that the patient has been to this emergency department on numerous occasions, almost always for painful processes. I asked the patient why it was that she was wrestling if she is so susceptible to injury, and she was not able to give me an answer. The patient's PCP is Dr. Echeverria. Middle Back Pain Score (Numeric/FACES): 6 - Related Data Allergies Allergy/AdvReac Type Severity Reaction Status Date / Time tramadol AdvReac Stomach Verified 07/27/17 18:44 Upset Home Meds: Home Meds Sertraline [Zoloft] 200 mg PO DAILY 12/31/14 [History] risperiDONE 4 mg PO DAILY 03/13/15 [History] Baclofen 20 mg PO TID 11/16/15 [History] ClonazePAM [KlonoPIN] 3 mg PO BEDTIME 11/13/16 [History] Naproxen 500 mg PO BID 01/14/17 [History] Past Medical History HEENT History: Reports: Impaired Vision, Other (See Below) Other HEENT History: Wears contacts. States had gum disease, states has dentures "but they don't fit right. 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: Reports: Endometriosis, Musculoskeletal History: Reports: Back Pain, Chronic Neurological History: Reports: Headaches, Chronic Psychiatric History: Reports: Bipolar, Depression, Mood Swings, Schizophrenia, Other (See Below) (Insomnia) - Past Surgical History HEENT Surgical History: Reports: Adenoidectomy, Oral Surgery (All teeth extracted), Tonsillectomy GI Surgical History: Reports: Hernia, Abdominal Female Surgical History: Reports: Breast Biopsy (right - benign), Section (x 1), Other (See Below) (Exploratory laparoscopy for endometriosis) Social & Family History - Family History Family Medical History: Noncontributory - Tobacco Use Smoking Status *Q: Current Every Day Smoker Years of Tobacco use: 15 Packs/Tins Daily: 1 - Caffeine Use Caffeine Use: Reports: Soda - Alcohol Use Alcohol Use History: No Days Per Week of Alcohol Use: 0 - Recreational Drug Use Recreational Drug Use: Yes Drug Use in Last 12 Months: Yes Recreational Drug Type: Reports: Marijuana/Hashish (last use late June 2017) Recreational Drug Use Frequency: Socially Recreational Drug Last Use: last week - Living Situation & Occupation Living situation: Reports: Single, with Significant Other (Boyfriend), with Family (1 child) Occupation: Unemployed ED ROS GENERAL - Review of Systems Review Of Systems: ROS reveals no pertinent complaints other than HPI. ED EXAM, GENERAL - Physical Exam Exam: See Below Exam Limited By: No Limitations General Appearance: Alert, WD/WN, No Apparent Distress Eye Exam: Bilateral Eye: Normal Inspection Ears: Normal External Exam, Hearing Grossly Normal Nose: Normal Inspection, No Blood Throat/Mouth: Normal Inspection, Normal Lips, Normal Voice, No Airway Compromise Head: Atraumatic, Normocephalic Neck: Normal Inspection, Full Range of Motion Respiratory/Chest: No Respiratory Distress, Lungs Clear, Normal Breath Sounds, No Accessory Muscle Use, Other (No visible abnormality to the mid-right back, such as swelling, erythema, ecchymosis, or abrasion. The patient reports tenderness to palpation of that area, but on auscultation of the lungs with my stethoscope, I intentionally pressed firmly in that area, which the patient did not elicit tenderness. No rub or crepitus to the area.) Cardiovascular: Normal Peripheral Pulses, Regular Rate, Rhythm, No Gallop, No JVD, No Murmur, No Rub Peripheral Pulses: 4+: Radial (L), Radial (R) GI/Abdominal: Normal Bowel Sounds, Soft, Non-Tender, No Organomegaly, No Distention, No Abnormal Bruit, No Mass (Female) Exam: Deferred Rectal (Female) Exam: Deferred Back Exam: Normal Inspection, Full Range of Motion, NT Extremities: Normal Inspection, Normal Range of Motion, No Pedal Edema, Normal Capillary Refill Neurological: Alert, Oriented, Normal Cognition, No Motor/Sensory Deficits Psychiatric: Normal Affect Skin Exam: Warm, Dry, Intact, Normal Color, No Rash Course - Vital Signs Last Recorded V/S: Last Vital Signs Temp 36.7 C 07/27/17 18:45 Pulse 72 07/27/17 18:45 Resp 12 07/27/17 18:45 BP 132/90 07/27/17 18:45 Pulse Ox 100 07/27/17 18:45 - Re-Assessments/Exams Free Text/Narrative Re-Assessment/Exam: 07/27/17 20:07 The patient claims that she has right mid-back pain following an injury when she was wrestling with her boyfriend last night. On physical examination, there are no physical abnormalities whatsoever, including erythema, ecchymosis, abrasion, or swelling. Further, when I listened to her lungs with the stethoscope, I intentionally pressed firmly on her back, and she did not react. There are no rubs or crepitus. I suggested that the patient may be suffering from a muscle spasm, but expressed reluctance to prescribe a muscle relaxant, as the patient is already on baclofen. She stated that she did not want to stop baclofen, and did not feel that she was suffering from a muscle spasm. She stated that her pain was due to a direct injury. I told her that I could prescribe a prescription strength NSAIDs, such as naproxen, but she refused, stating that she already has ibuprofen at home, and that it doesn't do anything. I pointed out that since the patient has been to the ED on numerous occasions for painful processes , she must be familiar with the pain medications that are available, and what medication did she want? She replied that she wanted either Dobson or Percocet. Review of the [place] PMPi finds that the patient has 101 prescriptions for controlled substances, prescribed by 20 prescribers since 08/09/2014. In this case, it is very clear that the patient is drug-seeking. I confronted the patient about this with Peyton ALEXANDRA present. The patient argued that she is not currently prescribed any opioids. While that is true, I informed her that we are concerned about her behavior, insofar as it may lead to further problems in the future. I recommended that the patient be evaluated at [facility]. The patient is in denial and refused that advice. She stated that she was not going to wait for discharge instructions. Departure - Departure Time of Disposition: 20:15 Disposition: Eloped 07 Condition: Good Clinical Impression: Drug-seeking behavior - Discharge Information Instructions: Back Pain, Adult Referrals: Riya Clemons MD [Primary Care Provider] - Forms: ED Department Discharge Additional Instructions: You were seen in the emergency room for an injury to the right side of your back. On physical examination, no injury was found. Appropriate pain medication, such as ibuprofen or prescription-strength naproxen was offered, but refused. You requested Dobson or Percocet, which was declined. Based on your current presentation, numerous prior presentations, and records of numerous controlled substance prescriptions over several years, it is determined that are drug seeking. This was discussed with you at length. We recommend that you seek professional help in this regard at [facility]: [address] [place] [phone] If any other problems, please do not hesitate to return to the ER.
== END 2017-07-27 20:00 | disposition left against medical advice (07) ==
LOC: JD.ED 18:27
DX: Z76.5 Malingerer [conscious simulation] (principal); F17.210 Nicotine dependence, cigarettes, uncomplicated; Z88.6 Allergy status to analgesic agent; Z79.899 Other long term (current) drug therapy
CPT/HCPCS: 99283

== ENCOUNTER 2017-08-24 14:18 | Emergency (ER) | payer MEDICAID ==
[2017-08-24] MEDS ORDERED: Metoclopramide 10 MG/2 ML SDV IVPUSH ONE (15:14)
[2017-08-24] MEDS ORDERED: Dextrose 5%-0.9% NaCl 1,000 ML IV SCH (15:15)
[2017-08-24] MEDS ORDERED: HYDROmorphone 0.5 MG/0.5 ML SYRINGE IVPUSH ONE (15:15)
[2017-08-24] MEDS ORDERED: Ketorolac 30 MG/ML SDV IVPUSH SCH (15:15)
--- NOTE | 2017-08-24 15:16 | EDM.PDOC ---
ED HPI GENERAL MEDICAL PROBLEM - General Chief Complaint: Headache Stated Complaint: POSS MIGRAINE/NAUSEA Time Seen by Provider: 08/24/17 15:14 Source of Information: Reports: Patient History Limitations: Reports: No Limitations - History of Present Illness INITIAL COMMENTS - FREE TEXT/NARRATIVE: 32-year-old female presents to the ED with a 2-1/2 day history of severe headache. She is prone to migraines. At present she has adiffuse bilateral headache but it initially started behind her left eye.associated nausea without vomiting. However very poor oral and solid intake over the last 2 days.Trying to sleep in a darkened room to make the headache better. She pebx644 mg of Benadryl this morning and at the time of my examination her speech was mildly dysarthric and she was very lethargic. She denies taking any alcohol I do not smell any alcohol on her breath. States is nothing different about this headache compared to what she's experienced in the past.of note on review of her medicine she does take risperidone, Topamax, and Clonopin all of which could be contributing to her current drowsy state. Onset: Gradual (has had a headache for the last 2 and half days.) Onset Date: 08/22/17 Duration: Day(s): Location: Reports: Head (diffuse throbbing pounding headache.) Quality: Reports: Ache, Throbbing, Other (pulsating) Severity: Severe (rates current headache as 8 or 9 out of 10.) Improves with: Reports: Rest (in a dark room.) Worsens with: Reports: Movement Context: Reports: Other (awoke with headache 2 and half days ago). Denies: Activity, Exercise, Lifting, Sick Contact, Trauma Associated Symptoms: Reports: Nausea/Vomiting. 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 Headache Pain Score (Numeric/FACES): 8 - Related Data Allergies Allergy/AdvReac Type Severity Reaction Status Date / Time No Known Allergies Allergy Verified 08/24/17 14:38 Home Meds: Home Meds Sertraline [Zoloft] 200 mg PO DAILY 12/31/14 [History] risperiDONE 4 mg PO BEDTIME 03/13/15 [History] Baclofen 20 mg PO TID 11/16/15 [History] ClonazePAM [KlonoPIN] 4 mg PO BEDTIME 11/13/16 [History] Naproxen 500 mg PO BID PRN 01/14/17 [History] Topiramate 25 mg PO DAILY 08/24/17 [History] Past Medical History - Past Health History Medical/Surgical History: Denies Medical/Surgical History HEENT History: Reports: Impaired Vision, Other (See Below) Other HEENT History: Wears contacts. States had gum disease, states has dentures "but they don't fit right. 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 History: Reports: Endometriosis, Musculoskeletal History: Reports: Back Pain, Chronic Neurological History: Reports: Headaches, Chronic Psychiatric History: Reports: Bipolar, Depression, Mood Swings, Schizophrenia, Other (See Below) Other Oncologic History: lump removed from right breast, not CA - Past Surgical History HEENT Surgical History: Reports: Adenoidectomy, Oral Surgery, Tonsillectomy GI Surgical History: Reports: Hernia, Abdominal Female Surgical History: Reports: Breast Biopsy, Section, Other ( See Below) Social & Family History - Family History Family Medical History: Noncontributory - Tobacco Use Smoking Status *Q: Current Every Day Smoker Years of Tobacco use: 15 Packs/Tins Daily: 0.5 Used Tobacco, but Quit: No - Caffeine Use Caffeine Use: Reports: Energy Drinks, Soda - Recreational Drug Use Recreational Drug Use: Yes Recreational Drug Type: Reports: Marijuana/Hashish Other Recreational Drug Type: last used about 1 week ago Recreational Drug Use Frequency: Weekly - Living Situation & Occupation Living situation: Reports: Single, with Significant Other (Boyfriend), with Family (1 child) Occupation: Unemployed ED ROS GENERAL - Review of Systems Review Of Systems: See Below Constitutional: Reports: Fatigue. Denies: Fever, Chills HEENT: Reports: No Symptoms, Other (severe headache at present prone to migraines) Respiratory: Reports: No Symptoms Cardiovascular: Reports: No Symptoms Endocrine: Reports: No Symptoms GI/Abdominal: Reports: Constipation : Reports: No Symptoms Musculoskeletal: Reports: No Symptoms Skin: Reports: No Symptoms Neurological: Reports: Dizziness, Headache (sravanthi), Numbness, Difficulty Walking. Denies: Syncope, Weakness Psychiatric: Reports: Other (patient suffers from severe bipolar affective disorder. She has been labeled was schizophrenia but I believe she has more of a schizoaffective disorder.) - Physical Exam Exam: See Below Exam Limited By: Altered Mental Status (atient is quite drowsy and is dysarthric on examination.) General Appearance: Lethargic, Other Ears: Normal TMs Throat/Mouth: Other (tongue is dry and coated.) Head Exam: Atraumatic, Normocephalic Neck: Normal Inspection, Supple, Non-Tender, Full Range of Motion. No: Lymphadenopathy (L), Lymphadenopathy (R) Respiratory/Chest: No Respiratory Distress, Lungs Clear, Normal Breath Sounds Cardiovascular: Normal Peripheral Pulses, Regular Rate, Rhythm, No Edema, No Gallop, No Murmur GI/Abdominal: Normal Bowel Sounds, Soft, Non-Tender, No Organomegaly, No Abnormal Bruit, No Mass Neuro Exam (Abbreviated): Oriented, CN II-XII Intact, Normal Cognition, No Motor /Sensory Deficits, Inattentive, Slow to Respond. No: Alert, Normal Gait, Normal Reflexes DTR: 0: Patella (R), Patella (L), Achilles (R), Achilles (L) Back Exam: Normal Inspection, Full Range of Motion. No: CVA Tenderness (L), CVA Tenderness (R) Extremities: Normal Inspection, Normal Range of Motion, Non-Tender, No Pedal Edema Psychiatric: Flat Affect Skin Exam: Warm, Dry, Intact, Normal Color, No Rash EKG INTERPRETATION EKG Date: 08/24/17 Time: 15:42 Rhythm: NSR Rate (Beats/Min): 78 [place]: Normal P-Wave: Present QRS: Normal ST-T: Normal QT: Normal EKG Interpretation Comments: normal ECG Course - Vital Signs Last Recorded V/S: Last Vital Signs Temp 37.2 C 08/24/17 14:32 Pulse 65 08/24/17 16:58 Resp 18 08/24/17 16:58 BP 98/71 08/24/17 16:58 Pulse Ox 93 L 08/24/17 16:58 - Orders/Labs/Meds Orders: Active Orders 24 hr Category Date Time Status EKG Documentation Completion [RC] STAT Care 08/24/17 15:35 Active DRUG SCREEN, URINE [URCHEM] Stat Lab 08/24/17 15:34 Ordered Dextrose 5%-0.9% NaCl [Dextrose 5%-Normal Saline] 1,000 Med 08/24/17 15:15 Active ml IV ASDIRECTED Ketorolac [Toradol] Med 08/24/17 15:15 Active 30 mg IVPUSH ONETIME Medication Orders Dextrose/Sodium Chloride (Dextrose 5%-Normal Saline) 1,000 mls @ 999 mls/hr IV ASDIRECTED DANIEL Last Admin: 08/24/17 15:26 Dose: 999 mls/hr Ketorolac Tromethamine (Toradol) 30 mg IVPUSH ONETIME DANIEL Last Admin: 08/24/17 15:31 Dose: 30 mg Labs: Laboratory Tests 08/24/17 08/24/17 08/24/17 Range/Units 15:21 15:21 15:34 WBC 9.16 (3.98-10.04) K/mm3 RBC 4.19 (3.98-5.22) M/mm3 Hgb 13.3 (11.2-15.7) gm/L Hct 39.0 (34.1-44.9) % MCV 93.1 (79.4-94.8) fl MCH 31.7 (25.6-32.2) pg MCHC 34.1 (32.2-35.5) g/dl RDW Std Deviation 47.4 H (36.4-46.3) fL Plt Count 276 (182-369) K/mm3 MPV 9.3 L (9.4-12.3) fl Neutrophils % (Manual) 51 (40-60) % Band Neutrophils % 0 (0-10) % Lymphocytes % (Manual) 43 H (20-40) % Atypical Lymphs % 0 % Monocytes % (Manual) 2 (2-10) % Eosinophils % (Manual) 3 (0.7-5.8) % Basophils % (Manual) 1 (0.1-1.2) Platelet Estimate Adequate Plt Morphology Comment Normal RBC Morph Comment Normal Sodium 143 (136-145) mEq/L Potassium 3.5 (3.5-5.1) mEq/L Chloride 108 H (98-107) mEq/L Carbon Dioxide 23 (21-32) mEq/L Anion Gap 15.5 H (5-15) BUN 8 (7-18) mg/dL Creatinine 0.7 (0.55-1.02) mg/dL Est Cr Clr Drug Dosing 104.78 mL/min Estimated GFR (MDRD) > 60 (>60) mL/min BUN/Creatinine Ratio 11.4 L (14-18) Glucose 80 (74-106) mg/dL Calcium 9.6 (8.5-10.1) mg/dL Total Bilirubin 0.3 (0.2-1.0) mg/dL AST 7 L (15-37) U/L ALT 14 (14-59) U/L Alkaline Phosphatase 69 (46-116) U/L Total Protein 7.3 (6.4-8.2) g/dl Albumin 4.2 (3.4-5.0) g/dl Globulin 3.1 gm/dL Albumin/Globulin Ratio 1.4 (1-2) Urine Opiates Screen Negative (NEGATIVE) Ur Buprenorphine Scrn Negative (NEGATIVE) Ur Oxycodone Screen Negative (NEGATIVE) Urine Methadone Screen Negative (NEGATIVE) Ur Propoxyphene Screen Negative (NEGATIVE) Ur Barbiturates Screen Negative (NEGATIVE) Ur Tricyclics Screen Negative (NEGATIVE) Ur Phencyclidine Scrn Negative (NEGATIVE) Ur Amphetamine Screen Negative (NEGATIVE) U Methamphetamines Scrn Negative (NEGATIVE) U Benzodiazepines Scrn Presumptive positive H (NEGATIVE) U Cocaine Metab Screen Negative (NEGATIVE) U Marijuana (THC) Screen Presumptive positive H (NEGATIVE) Ethyl Alcohol 0.00 (0.00) gm% Meds: Medications Generic Name Dose Route Start Last Admin Trade Name Freq PRN Reason Stop Dose Admin Dextrose/Sodium Chloride 1,000 mls @ 999 mls/hr 08/24/17 15:15 08/24/17 15:26 Dextrose 5%-Normal Saline IV 999 mls/hr ASDIRECTED DANIEL Administration Ketorolac Tromethamine 30 mg 08/24/17 15:15 08/24/17 15:31 Toradol IVPUSH 30 mg ONETIME DANIEL Administration Discontinued Medications Generic Name Dose Route Start Last Admin Trade Name Freq PRN Reason Stop Dose Admin Hydromorphone HCl 0.5 mg 08/24/17 15:15 08/24/17 15:35 Dilaudid IVPUSH 08/24/17 15:16 0.5 mg ONETIME ONE Administration Metoclopramide HCl 7.5 mg 08/24/17 15:14 08/24/17 15:30 Reglan IVPUSH 08/24/17 15:15 7.5 mg ONETIME ONE Administration - Radiology Interpretation Free Text/Narrative:: 2-year-old female presents to the ED complaining of a 2-1/2 day history of bad headache. Associated nausea without vomiting. Patient has a hisShe states it started primarily behind her left eye but it is present in both sides of her head and is throbbing and pounding. Associated nausea without any vomiting. Admits to very poor oral intake over the last 2 days she's been living in a darkened room opening adequate get better. She was extremely lethargic and somewhat dysarthric upon my initial examination and she admits that she took 100 mg of Benadryl earlier today. She was hoping this would break the headache cycle and help her sleep.however I think her history is somewhat unreliable and I cannot be clear that she did not take an overdose of her risperidone or her Klonopin.plan IV D5 normal saline at open. Will give her Toradol 30 mg IV with Reglan 7.5 mg IVand Dilaudid 0.5 mg IV for headache relief. Routine labs and a urine drug screen will be ordered. Also in ECG. - Re-Assessments/Exams Free Text/Narrative Re-Assessment/Exam: 08/24/17 15:47 ECG was done to assess her QT interval and it is found to be within normal limits. ECG is normal sinus rhythm at 70/m with a normal QT interval. 08/24/17 16:36 Labs are back. White count is normal at 9.16 with 51% neutrophils and no bands reported. Hemoglobin is 13.3 with hematocrit of 39.0. Platelet count is normal 2 and 76,000. Serum sodium was 143 with a potassium of 3.5. Chloride is 108 with a bicarbonate of 23. Anion gap is 15.5. BUN is 8 with a creatinine of 0.7. Therefore she has been taking adequate amounts of fluids. Glucose was 80. Calcium 9.6 liver function normal. Urine drug screen is positive for benzodiazepines and marijuana. Blood alcohol was 0.patient's O2 sats dropped to around 89-90% after receiving medications. Sleeping. She was placed on oxygen 2 L/m by nasal cannula. BP is 95/54. 08/24/17 17:17 p She remains fast asleep.Patient has completed a liter of IV fluids. BP remains around 85-90 systolic.saline lock will now be ordered. 08/24/17 17:49 she is now ready for discharge home. She's calling her boyfriend for a ride. Headache is reportedly completely gone. Departure - Departure Time of Disposition: 17:46 Disposition: Home, Self-Care 01 Condition: Fair Clinical Impression: Migraine headache Qualifiers: Migraine type: without aura Status migrainosus presence: without status migrainosus Intractability: not intractable Qualified Code(s): G43.009 - Migraine without aura, not intractable, without status migrainosus - Discharge Information Referrals: Riya Clemons MD [Primary Care Provider] - Forms: ED Department Discharge Additional Instructions: evaluation the emergent today in regards to migraine headache for the last 2 and half days. Associated with nausea without vomiting. You're treated with intravenous fluids to provide rehydration. You were given medications Toradol 30 mg with Reglan 7.5 mg nd Dilaudid 0.5 mg for headache relief. You had a 1-1/ 2 hour nap in the ED after medications were given. By history you have taken Benadryl by mouth earlier this morning in an attempt to get sleep. Suggest home to have a small meal and then off to bed to break the headache cycle. He will not be allowed to opera vehicle until tomorrow morning due to medications that you have received. - My Orders Last 24 Hours: My Active Orders 08/24/17 15:15 Dextrose 5%-0.9% NaCl [Dextrose 5%-Normal Saline] 1,000 ml IV ASDIRECTED Ketorolac [Toradol] 30 mg IVPUSH ONETIME 08/24/17 15:34 DRUG SCREEN, URINE [URCHEM] Stat 08/24/17 15:35 EKG Documentation Completion [RC] STAT - Assessment/Plan Last 24 Hours: My Active Orders 08/24/17 15:15 Dextrose 5%-0.9% NaCl [Dextrose 5%-Normal Saline] 1,000 ml IV ASDIRECTED Ketorolac [Toradol] 30 mg IVPUSH ONETIME 08/24/17 15:34 DRUG SCREEN, URINE [URCHEM] Stat 08/24/17 15:35 EKG Documentation Completion [RC] STAT
[2017-08-24 16:58] VITALS: BP 98/71
== END 2017-08-24 17:56 | disposition home or self-care (01) ==
LOC: JD.ED 14:18
DX: G43.009 Migraine without aura, not intractable, without status migrainosus (principal); F31.9 Bipolar disorder, unspecified; F17.210 Nicotine dependence, cigarettes, uncomplicated; Z79.899 Other long term (current) drug therapy; Z87.440 Personal history of urinary (tract) infections
CPT/HCPCS: 36415; 80053; 80306; 85007; 85027; 93005; 96361; 96374; 96375; 99284; G0480; J1170; J1885; J2765; J7042

== ENCOUNTER 2017-10-24 19:08 | Emergency (ER) | payer MEDICAID ==
[2017-10-24 19:20] VITALS: BP 107/75
--- NOTE | 2017-10-24 19:41 | EDM.PDOC ---
ED HPI GENERAL MEDICAL PROBLEM - General Chief Complaint: Back Pain or Injury Stated Complaint: LOWER BACK PAIN Time Seen by Provider: 10/24/17 19:12 Source of Information: Reports: Patient History Limitations: Reports: No Limitations - History of Present Illness INITIAL COMMENTS - FREE TEXT/NARRATIVE: This is a 32-year-old female. She has a long history of low back pain and she takes baclofen on a regular basis. Apparently she has been moving things around her house over the last couple of weeks and her back slowly gotten worse and worse. She normally sees a local family physician for her back but she did not see them this week. She complains of pain in the low back but it does not run down her legs. She is requesting something for the pain. She states she still taking the baclofen and that normally works. I explained to her that we will not provide any narcotics for her but I will give her a shot and a prescription for the weekend so she can follow-up with her family doctor next week. She denies any fever or chills denies any nausea and vomiting cough or congestion. The patient denies ever having had a CT of her back for a MRI of her back. Lower Back Pain Score (Numeric/FACES): 7 - Related Data Allergies Allergy/AdvReac Type Severity Reaction Status Date / Time No Known Allergies Allergy Verified 08/24/17 14:38 Home Meds: Home Meds Sertraline [Zoloft] 200 mg PO DAILY 12/31/14 [History] risperiDONE 4 mg PO BEDTIME 03/13/15 [History] Baclofen 20 mg PO TID 11/16/15 [History] ClonazePAM [KlonoPIN] 4 mg PO BEDTIME 11/13/16 [History] Naproxen 500 mg PO BID PRN 01/14/17 [History] Topiramate 25 mg PO DAILY 08/24/17 [History] traMADol [Ultram] 50 mg PO Q8H PRN #10 tab 10/24/17 [Rx] Past Medical History - Past Health History Medical/Surgical History: Denies Medical/Surgical History HEENT History: Reports: Impaired Vision, Other (See Below) Other HEENT History: Wears contacts. States had gum disease, states has dentures "but they don't fit right. 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, Musculoskeletal History: Reports: Back Pain, Chronic Neurological History: Reports: Headaches, Chronic Psychiatric History: Reports: Bipolar, Depression, Mood Swings, Schizophrenia, Other (See Below) Other Oncologic History: lump removed from right breast, not [place] - Past Surgical History HEENT Surgical History: Reports: Adenoidectomy, Oral Surgery, Tonsillectomy GI Surgical History: Reports: Hernia, Abdominal Female Surgical History: Reports: Breast Biopsy, Section, Other ( See Below) Social & Family History - Family History Family Medical History: Noncontributory - Tobacco Use Smoking Status *Q: Current Every Day Smoker Years of Tobacco use: 15 Packs/Tins Daily: 1 - Caffeine Use Caffeine Use: Reports: Energy Drinks, Soda - Recreational Drug Use Recreational Drug Type: Reports: Marijuana/Hashish - Living Situation & Occupation Living situation: Reports: Single, with Significant Other (Boyfriend), with Family (1 child) Occupation: Unemployed ED ROS GENERAL - Review of Systems Review Of Systems: See Below Constitutional: Denies: Fever, Chills HEENT: Reports: No Symptoms Respiratory: Reports: No Symptoms Cardiovascular: Reports: No Symptoms Endocrine: Reports: No Symptoms GI/Abdominal: Reports: No Symptoms : Reports: No Symptoms Musculoskeletal: Reports: Back Pain Skin: Reports: No Symptoms Neurological: Reports: No Symptoms Psychiatric: Reports: No Symptoms Hematologic/Lymphatic: Reports: No Symptoms ED EXAM,LOWER BACK PAIN/INJURY - Physical Exam Exam: See Below Exam Limited By: No Limitations General Appearance: Alert, WD/WN, Mild Distress Eye Exam: Bilateral Eye: Normal Inspection Ears: Normal External Exam Nose: Normal Inspection Throat/Mouth: Normal Inspection, Normal Lips, Normal Voice, No Airway Compromise Head: Normocephalic Neck: Supple Respiratory/Chest: No Respiratory Distress GI/Abdominal: Other (She denies tenderness) Back Exam: Normal Inspection, Decreased Range of Motion, Other (The tenderness is along L4-L5 and seems to spread laterally on both sides as well as going up the paraspinal muscles slightly and also into the upper buttocks likely, she denies any pain going down her legs however. When she attempts to stand she is half bent and does not want to stand up straight.) Extremities: Normal Inspection, Normal Range of Motion Neurological: Alert, Normal Mood/Affect Psychiatric: Normal Affect, Normal Mood Skin Exam: Warm, Dry Course - Vital Signs Last Recorded V/S: Last Vital Signs Temp 98.4 F 10/24/17 19:18 Pulse 94 10/24/17 19:18 Resp 20 10/24/17 19:18 BP 107/75 10/24/17 19:18 Pulse Ox 97 10/24/17 19:18 - Orders/Labs/Meds Meds: Medications Discontinued Medications Generic Name Dose Route Start Last Admin Trade Name Toni PRN Reason Stop Dose Admin Ketorolac Tromethamine 60 mg 10/24/17 19:44 Toradol IM 10/24/17 19:45 ONETIME ONE - Re-Assessments/Exams Free Text/Narrative Re-Assessment/Exam: 10/24/17 19:51 Patient is requesting pain medications. I indicated to her that we will not provide any narcotics for a chronic back problem. However I'll give her a shot of Toradol and I'll give her 10 tablets of tramadol for the weekend and then she needs to follow-up with her family doctor. Departure - Departure Time of Disposition: 19:51 Disposition: Home, Self-Care 01 Condition: Fair Clinical Impression: Low back pain Qualifiers: Chronicity: acute Back pain laterality: bilateral Sciatica presence: without sciatica Qualified Code(s): M54.5 - Low back pain Lumbar spine strain Qualifiers: Encounter type: initial encounter Qualified Code(s): S39.012A - Strain of muscle, fascia and tendon of lower back, initial encounter - Discharge Information *PRESCRIPTION DRUG MONITORING PROGRAM REVIEWED*: No *COPY OF PRESCRIPTION DRUG MONITORING REPORT IN PATIENT LANCE: Not Applicable Prescriptions: traMADol [Ultram] 50 mg PO Q8H PRN #10 tab PRN Reason: Pain Referrals: Riya Clemons MD [Primary Care Provider] - Forms: ED Department Discharge Additional Instructions: Bed rest for the weekend, use heat or ice as needed to help with the soreness, continue with your baclofen as prescribed, use the Toradol as needed to help with the pain, follow up with your family doctor next week for recheck and additional medications if that is needed, return to the ER if needed
[2017-10-24] MEDS ORDERED: Ketorolac 60 MG/2 ML SDV IM ONE (19:44)
== END 2017-10-24 20:04 | disposition home or self-care (01) ==
LOC: JD.ED 19:08
DX: S39.012A Strain of muscle, fascia and tendon of lower back, initial encounter (principal); F17.210 Nicotine dependence, cigarettes, uncomplicated; Z79.899 Other long term (current) drug therapy; X58.XXXA Exposure to other specified factors, initial encounter
CPT/HCPCS: 96372; 99283; J1885

== ENCOUNTER 2017-12-04 09:20 | Emergency (ER) | payer MEDICAID ==
[2017-12-04 09:34] VITALS: BP 129/87
--- NOTE | 2017-12-04 10:54 | EDM.PDOC ---
ED HPI GENERAL MEDICAL PROBLEM - General Chief Complaint: Lower Extremity Injury/Pain Stated Complaint: L FOOT INJURY Time Seen by Provider: 12/04/17 09:40 Source of Information: Reports: Patient History Limitations: Reports: No Limitations - History of Present Illness INITIAL COMMENTS - FREE TEXT/NARRATIVE: The patient presents with left foot pain. Four weeks ago she fractured her 5th metatarsal. She is seeing Dr Gonsalves and he has her in a cast. She was on her feet today and stepped wrong and felt more pain. She is worried she may have hurt her foot again. Onset: Sudden Duration: Minutes: Location: Reports: Lower Extremity, Left Quality: Reports: Sharp Severity: Severe Improves with: Reports: Immobilization Worsens with: Reports: Movement Context: Reports: Activity (She was using her foot and hurt her foot) Associated Symptoms: Reports: No Other Symptoms Left Feet Pain Score (Numeric/FACES): 6 - Related Data Allergies Allergy/AdvReac Type Severity Reaction Status Date / Time No Known Allergies Allergy Verified 11/13/17 18:01 Home Meds: Home Meds Sertraline [Zoloft] 200 mg PO DAILY 12/31/14 [History] risperiDONE 4 mg PO BEDTIME 03/13/15 [History] Baclofen 20 mg PO TID 11/16/15 [History] ClonazePAM [KlonoPIN] 4 mg PO BEDTIME 11/13/16 [History] Naproxen 500 mg PO BID PRN 01/14/17 [History] Topiramate 25 mg PO DAILY 08/24/17 [History] Ibuprofen 600 mg PO QID PRN #40 tablet 11/11/17 [Rx] Acetaminophen [Acetaminophen Extra Strength] 1,500 mg PO Q6H PRN 12/04/17 [ History] Hydrocodone/Acetaminophen [Hydrocodon-Acetaminophen 5-325] 1 - 2 each PO Q6HR PRN #6 tablet 12/04/17 [Rx] traMADol [Ultram] 50 mg PO Q6H PRN 12/04/17 [History] Past Medical History - Past Health History Medical/Surgical History: Denies Medical/Surgical History HEENT History: Reports: Impaired Vision Other HEENT History: Wears contacts. States had gum disease, states has dentures "but they don't fit right. 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: Endometriosis, Musculoskeletal History: Reports: Back Pain, Chronic Neurological History: Reports: Headaches, Chronic Psychiatric History: Reports: Bipolar, Depression, Mood Swings, Schizophrenia, Other (See Below) Other Oncologic History: lump removed from right breast, not CA - Past Surgical History HEENT Surgical History: Reports: Adenoidectomy, Oral Surgery, Tonsillectomy GI Surgical History: Reports: Hernia, Abdominal Female Surgical History: Reports: Section, Other (See Below) Oncologic Surgical History: Reports: Biopsy of Breast Social & Family History - Family History Family Medical History: Noncontributory - Tobacco Use Smoking Status *Q: Current Every Day Smoker Years of Tobacco use: 15 Packs/Tins Daily: 1 - Caffeine Use Caffeine Use: Reports: Energy Drinks - Recreational Drug Use Recreational Drug Use: Yes Drug Use in Last 12 Months: Yes Recreational Drug Type: Reports: Marijuana/Hashish Recreational Drug Use Frequency: Socially - Living Situation & Occupation Living situation: Reports: Single, with Significant Other (Boyfriend), with Family (1 child) Occupation: Unemployed Review of Systems - Review of Systems Review Of Systems: See Below Constitutional: Reports: No Symptoms Eyes: Reports: No Symptoms Ears: Reports: No Symptoms Nose: Reports: No Symptoms Mouth/Throat: Reports: No Symptoms Respiratory: Reports: No Symptoms Cardiovascular: Reports: No Symptoms GI/Abdominal: Reports: No Symptoms Genitourinary: Reports: No Symptoms Musculoskeletal: Reports: Other (Left foot pain) ED EXAM, GENERAL - Physical Exam Exam: See Below Exam Limited By: No Limitations General Appearance: Alert, No Apparent Distress Ears: Normal External Exam Head: Atraumatic, Normocephalic Neck: Normal Inspection Respiratory/Chest: No Respiratory Distress Extremities: Other (Left foot is in a cast. Good sensatin and capillary refill distally. Pain upon palpation if I try to reach further in the cast.) Course - Vital Signs Last Recorded V/S: Last Vital Signs Temp 98.3 F 12/04/17 09:31 Pulse 100 12/04/17 09:31 Resp 16 12/04/17 09:31 BP 129/87 12/04/17 09:31 Pulse Ox 99 12/04/17 09:31 - Orders/Labs/Meds Orders: Active Orders 24 hr Category Date Time Status Foot Comp Min 3V Lt [CR] Stat Exams 12/04/17 09:47 Taken - Re-Assessments/Exams Free Text/Narrative Re-Assessment/Exam: 12/04/17 10:51 I did an x-ray and there is no change from before. I will discharge her home. Departure - Departure Time of Disposition: 10:55 Disposition: Home, Self-Care 01 Condition: Good Clinical Impression: Fracture of metatarsal of left foot, closed Qualifiers: Encounter type: subsequent encounter Metatarsal bone: fifth Fracture alignment : nondisplaced Fracture healing: with delayed healing Qualified Code(s): S92.355G - Nondisplaced fracture of fifth metatarsal bone, left foot, subsequent encounter for fracture with delayed healing - Discharge Information *PRESCRIPTION DRUG MONITORING PROGRAM REVIEWED*: No *COPY OF PRESCRIPTION DRUG MONITORING REPORT IN PATIENT LANCE: No Prescriptions: Hydrocodone/Acetaminophen [Hydrocodon-Acetaminophen 5-325] 1 - 2 each PO Q6HR PRN #6 tablet PRN Reason: Pain Referrals: Riya Clemons MD [Primary Care Provider] - Reji Gonsalves MD [Physician] - 1 Week Additional Instructions: Follow up with Dr Gonsalves. Take the hydrocodone as needed for pain. Do not take the tramadol. Please return if you are worse. - My Orders Last 24 Hours: My Active Orders 12/04/17 09:47 Foot Comp Min 3V Lt [CR] Stat - Assessment/Plan Last 24 Hours: My Active Orders 12/04/17 09:47 Foot Comp Min 3V Lt [CR] Stat
--- NOTE | 2017-12-10 08:09 | CR ---
Left foot: Four views of the left foot were obtained. Comparison: Prior left foot exam of 12/01/17. Stable fifth metatarsal fracture is seen. Fiberglass cast is in place. No additional abnormality is appreciated through the cast. Impression: 1. Stable fifth metatarsal fracture with fiberglass cast. Diagnostic code #2
== END 2017-12-04 11:00 | disposition home or self-care (01) ==
LOC: JD.ED 09:20
DX: S92.355G Nondisplaced fracture of fifth metatarsal bone, left foot, subsequent encounter for fracture with delayed healing (principal); F17.210 Nicotine dependence, cigarettes, uncomplicated; F31.9 Bipolar disorder, unspecified; Z79.899 Other long term (current) drug therapy; X58.XXXD Exposure to other specified factors, subsequent encounter
CPT/HCPCS: 73630-LT; 99283

== ENCOUNTER 2017-12-27 16:38 | Emergency (ER) | payer MEDICAID ==
[2017-12-27 17:05] VITALS: BP 113/74
--- NOTE | 2017-12-27 17:22 | EDM.PDOC ---
ED HPI GENERAL MEDICAL PROBLEM - General Chief Complaint: Lower Extremity Injury/Pain Stated Complaint: L FOOT PAIN Time Seen by Provider: 12/27/17 17:03 Source of Information: Reports: Patient History Limitations: Reports: No Limitations - History of Present Illness INITIAL COMMENTS - FREE TEXT/NARRATIVE: The patient fractured her foot November 11. She was in a cast and then in a cam walker. She was walking on it and has been here multiple times for injuring her foot again. Onset: Sudden Duration: Minutes: Location: Reports: Lower Extremity, Left (Foot) Quality: Reports: Sharp Severity: Moderate Improves with: Reports: Immobilization Worsens with: Reports: Movement Associated Symptoms: Reports: No Other Symptoms Left Feet Pain Score (Numeric/FACES): 7 - Related Data Allergies Allergy/AdvReac Type Severity Reaction Status Date / Time No Known Allergies Allergy Verified 12/18/17 09:24 Home Meds: Home Meds Sertraline [Zoloft] 200 mg PO DAILY 12/31/14 [History] risperiDONE 4 mg PO BEDTIME 03/13/15 [History] Baclofen 20 mg PO TID 11/16/15 [History] ClonazePAM [KlonoPIN] 4 mg PO BEDTIME 11/13/16 [History] Naproxen 500 mg PO BID PRN 01/14/17 [History] Topiramate 25 mg PO DAILY 08/24/17 [History] Ibuprofen 600 mg PO QID PRN #40 tablet 11/11/17 [Rx] traMADol [Ultram] 50 mg PO Q6H PRN 12/04/17 [History] Acetaminophen [Tylenol Extra Strength] 1,500 mg PO Q6H 12/18/17 [History] Hydrocodone/Acetaminophen [Hydrocodon-Acetaminophen 5-325] 1 each PO Q6HR PRN # 7 tablet 12/18/17 [Rx] oxyCODONE 5 mg PO QID PRN #7 tab 12/18/17 [Rx] Past Medical History - Past Health History Medical/Surgical History: Denies Medical/Surgical History HEENT History: Reports: Impaired Vision Other HEENT History: Wears contacts. States had gum disease, states has dentures "but they don't fit right. 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, Musculoskeletal History: Reports: Back Pain, Chronic Neurological History: Reports: Headaches, Chronic Psychiatric History: Reports: Bipolar, Depression, Mood Swings, Schizophrenia, Other (See Below) Other Oncologic History: lump removed from right breast, not CA - Past Surgical History HEENT Surgical History: Reports: Adenoidectomy, Oral Surgery, Tonsillectomy GI Surgical History: Reports: Hernia, Abdominal Female Surgical History: Reports: Section, Other (See Below) Oncologic Surgical History: Reports: Biopsy of Breast Social & Family History - Family History Family Medical History: Noncontributory - Tobacco Use Smoking Status *Q: Current Every Day Smoker Years of Tobacco use: 15 Packs/Tins Daily: 1 - Caffeine Use Caffeine Use: Reports: Soda - Recreational Drug Use Recreational Drug Type: Reports: Marijuana/Hashish - Living Situation & Occupation Living situation: Reports: Single, with Significant Other (Boyfriend), with Family (1 child) Occupation: Unemployed Review of Systems - Review of Systems Review Of Systems: See Below Constitutional: Reports: No Symptoms Eyes: Reports: No Symptoms Ears: Reports: No Symptoms Nose: Reports: No Symptoms Mouth/Throat: Reports: No Symptoms Respiratory: Reports: No Symptoms Cardiovascular: Reports: No Symptoms GI/Abdominal: Reports: No Symptoms Genitourinary: Reports: No Symptoms Musculoskeletal: Reports: Foot Pain (left) Skin: Reports: No Symptoms Neurological: Reports: No Symptoms ED EXAM, GENERAL - Physical Exam Exam: See Below Exam Limited By: No Limitations General Appearance: Alert, No Apparent Distress Ears: Normal External Exam Nose: Normal Inspection Head: Atraumatic, Normocephalic Neck: Normal Inspection Respiratory/Chest: No Respiratory Distress Extremities: Other (No edema. She has pain upon palpation to the medial foot. Good sensation and pulses distally.) Course - Vital Signs Last Recorded V/S: Last Vital Signs Temp 97.7 F 12/27/17 17:01 Pulse 78 12/27/17 17:01 Resp 20 12/27/17 17:01 BP 113/74 12/27/17 17:01 Pulse Ox 97 12/27/17 17:01 - Orders/Labs/Meds Orders: Active Orders 24 hr Category Date Time Status Foot Comp Min 3V Lt [CR] Stat Exams 12/27/17 17:16 Taken - Re-Assessments/Exams Free Text/Narrative Re-Assessment/Exam: 12/27/17 17:23 I ordered another x-ray of her foot. 12/27/17 17:57 There is no change from prior x-ray. She just got 60 tramadol on the 10th. I will not give her anymore pain meds. She says they do not help. Departure - Departure Time of Disposition: 18:00 Disposition: Home, Self-Care 01 Condition: Good Clinical Impression: Fracture of fifth metatarsal bone of left foot with delayed healing Qualifiers: Fracture type: closed Fracture alignment: displaced Qualified Code(s): S92.352G - Displaced fracture of fifth metatarsal bone, left foot, subsequent encounter for fracture with delayed healing - Discharge Information *PRESCRIPTION DRUG MONITORING PROGRAM REVIEWED*: Yes *COPY OF PRESCRIPTION DRUG MONITORING REPORT IN PATIENT LANCE: Yes Referrals: Riya Clemons MD [Primary Care Provider] - Forms: ED Department Discharge Additional Instructions: Take the tramadol as prescribed. You may also try some aleve or motrin. You can try icing your foot and wear your cam walker. Follow up with Dr Gonsalves. - My Orders Last 24 Hours: My Active Orders 12/27/17 17:16 Foot Comp Min 3V Lt [CR] Stat - Assessment/Plan Last 24 Hours: My Active Orders 12/27/17 17:16 Foot Comp Min 3V Lt [CR] Stat
--- NOTE | 2017-12-29 07:13 | CR ---
Left foot: Four views of the left foot were obtained. Comparison: Prior left foot exam of 12/22/17. Stable fracture identified within the distal shaft of the fifth metatarsal. Mild amount of callus is seen. No additional fracture or other bony abnormality is identified. Impression: 1. Stable appearing fracture within the fifth metatarsal. 2. Nothing acute is appreciated. Diagnostic code #3
== END 2017-12-27 18:07 | disposition home or self-care (01) ==
LOC: JD.ED 16:38
DX: S92.352G Displaced fracture of fifth metatarsal bone, left foot, subsequent encounter for fracture with delayed healing (principal); F17.210 Nicotine dependence, cigarettes, uncomplicated; Z79.899 Other long term (current) drug therapy; X58.XXXD Exposure to other specified factors, subsequent encounter
CPT/HCPCS: 73630-26-LT; 73630-LT; 99283

== ENCOUNTER 2018-06-17 16:21 | Emergency (ER) | payer MEDICAID ==
[2018-06-17 16:41] VITALS: BP 112/90
[2018-06-17] MEDS ORDERED: Ketorolac 30 MG/ML SDV IM ONE (17:14)
--- NOTE | 2018-06-17 17:20 | EDM.PDOC ---
ED HPI GENERAL MEDICAL PROBLEM - General Chief Complaint: Back Pain or Injury Stated Complaint: BACK PAIN Time Seen by Provider: 06/17/18 17:05 Source of Information: Reports: Patient History Limitations: Reports: No Limitations - History of Present Illness INITIAL COMMENTS - FREE TEXT/NARRATIVE: 32 y/o female presents to ER with cc lower lumbar pain. She states she was "just standing and her back gave way and she felt a pop." She does have a history of muscle strain. She reports taking Baclofen, Naprosyn and Tylenol but has had little to no relief. She is requesting Percocet for her pain. She denies any incontinence of bowel or bladder. Onset: Today, Sudden Onset Date: 06/17/18 Onset Time: 16:00 Duration: Minutes: Location: Reports: Other (lower lumbar region) Quality: Reports: Ache Severity: Mild Improves with: Reports: None Worsens with: Reports: Movement Associated Symptoms: Reports: No Other Symptoms (no incontinence of bowel or bladder) Lower Back Pain Score (Numeric/FACES): 7 - Related Data Allergies Allergy/AdvReac Type Severity Reaction Status Date / Time No Known Allergies Allergy Verified 01/22/18 17:51 Home Meds: Home Meds Sertraline [Zoloft] 200 mg PO DAILY 12/31/14 [History] risperiDONE 4 mg PO DAILY 03/13/15 [History] ClonazePAM [KlonoPIN] 2 mg PO BEDTIME 11/13/16 [History] Naproxen 500 mg PO BID PRN 01/14/17 [History] Topiramate 25 mg PO DAILY 08/24/17 [History] Ibuprofen 600 mg PO QID PRN #40 tablet 11/11/17 [Rx] traMADol [Ultram] 50 mg PO Q6H PRN 12/04/17 [History] Acetaminophen [Tylenol Extra Strength] 1,500 mg PO Q6H 12/18/17 [History] Past Medical History - Past Health History Medical/Surgical History: Denies Medical/Surgical History HEENT History: Reports: Impaired Vision Other HEENT History: Wears contacts. States had gum disease, states has dentures "but they don't fit right. 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, Musculoskeletal History: Reports: Back Pain, Chronic Neurological History: Reports: Headaches, Chronic Psychiatric History: Reports: Bipolar, Depression, Mood Swings, Schizophrenia, Other (See Below) Oncologic (Cancer) History: Reports: Other (See Below) Other Oncologic History: lump removed from right breast, not CA - Past Surgical History HEENT Surgical History: Reports: Adenoidectomy, Oral Surgery, Tonsillectomy GI Surgical History: Reports: Hernia, Abdominal Female Surgical History: Reports: Section, Other (See Below) Oncologic Surgical History: Reports: Biopsy of Breast Social & Family History - Family History Family Medical History: Noncontributory - Tobacco Use Smoking Status *Q: Current Every Day Smoker Years of Tobacco use: 15 Packs/Tins Daily: 1 - Caffeine Use Caffeine Use: Reports: Energy Drinks, Soda - Recreational Drug Use Recreational Drug Type: Reports: Marijuana/Hashish Recreational Drug Use Frequency: Weekly - Living Situation & Occupation Living situation: Reports: Single, with Significant Other (Boyfriend), with Family (1 child) Occupation: Unemployed ED ROS GENERAL - Review of Systems Review Of Systems: See Below : Denies: Incontinence Musculoskeletal: Reports: Back Pain Neurological: Reports: No Symptoms, Other (no incontinence of bowel or bladder) ED EXAM,LOWER BACK PAIN/INJURY - Physical Exam Exam: See Below Exam Limited By: No Limitations General Appearance: Alert, WD/WN, No Apparent Distress Neck: Normal Inspection, Supple, Non-Tender, Full Range of Motion Respiratory/Chest: No Respiratory Distress, Lungs Clear, Normal Breath Sounds, No Accessory Muscle Use, Chest Non-Tender Cardiovascular: Normal Peripheral Pulses, Regular Rate, Rhythm, No Edema, No Gallop, No JVD, No Murmur, No Rub, JVD GI/Abdominal: Normal Bowel Sounds, Soft, Non-Tender, No Organomegaly, No Distention, No Abnormal Bruit, No Mass, Pelvis Stable Back Exam: Other (Pt has full ROM including ROM against resistance, pt is able to bend, stoop, twist and dorsi-flex toes. Her skin is intact with normal temperature and sensation. ) Extremities: Normal Inspection, Normal Range of Motion, Non-Tender, No Pedal Edema, Normal Capillary Refill Neurological: Alert, Normal Mood/Affect, Normal Dorsiflexion, Normal Plantar Flexion, Normal Gait, Normal Reflexes, No Motor/Sensory Deficits, Oriented x 3 Skin Exam: Warm, Dry, Intact, Normal Color, No Rash Course - Vital Signs Last Recorded V/S: Last Vital Signs Temp 99.6 F 06/17/18 16:39 Pulse 85 06/17/18 16:39 Resp 20 06/17/18 16:39 BP 112/90 06/17/18 16:39 Pulse Ox 100 06/17/18 16:39 - Orders/Labs/Meds Meds: Medications Discontinued Medications Generic Name Dose Route Start Last Admin Trade Name Toni PRN Reason Stop Dose Admin Ketorolac Tromethamine 30 mg 06/17/18 17:14 06/17/18 17:50 Toradol IM 06/17/18 17:15 30 mg ONETIME ONE Administration - Re-Assessments/Exams Free Text/Narrative Re-Assessment/Exam: 06/17/18 17:24 Patient received Toradol. She is requesting Percocet for her pain. I informed her that her symptoms appear to be chronic in nature. I will not prescribe Percocet for pain. I instructed her to follow up with her PCP for pain management. Departure - Departure Time of Disposition: 17:26 Disposition: Home, Self-Care 01 Condition: Good Clinical Impression: Lumbar spine strain Qualifiers: Encounter type: initial encounter Qualified Code(s): S39.012A - Strain of muscle, fascia and tendon of lower back, initial encounter - Discharge Information *PRESCRIPTION DRUG MONITORING PROGRAM REVIEWED*: Not Applicable *COPY OF PRESCRIPTION DRUG MONITORING REPORT IN PATIENT LANCE: Not Applicable Instructions: Low Back Sprain, Lumbosacral Strain Referrals: Riya Clemons MD [Primary Care Provider] - Forms: ED Department Discharge Additional Instructions: You have been diagnosis with lumbar strain. You received Toradol while in the ER. Do not take NSAIDS for the next 8 hours, including Naprosyn or Ibuprofen. Follow up with your PCP for further evaluation and treatment of your chronic condition. Return to the ER for any new or acute worsening symptoms.
== END 2018-06-17 18:54 | disposition home or self-care (01) ==
LOC: JD.ED 16:21
DX: S39.012A Strain of muscle, fascia and tendon of lower back, initial encounter (principal); F17.210 Nicotine dependence, cigarettes, uncomplicated; X58.XXXA Exposure to other specified factors, initial encounter
CPT/HCPCS: 96372; 99283; J1885

== ENCOUNTER 2018-06-18 11:47 | Emergency (ER) | payer MEDICAID ==
[2018-06-18 12:05] VITALS: BP 114/80
--- NOTE | 2018-06-18 12:22 | EDM.PDOC ---
ED HPI GENERAL MEDICAL PROBLEM - General Chief Complaint: Back Pain or Injury Stated Complaint: BACK PAIN Time Seen by Provider: 06/18/18 12:06 Source of Information: Reports: Patient History Limitations: Reports: No Limitations - History of Present Illness INITIAL COMMENTS - FREE TEXT/NARRATIVE: 32 yo F who is well-known to the department presents again for acute exacerbation of chronic low back pain. She is often here seeking narcotics for chronic pain management. She states her back pain got worse today after "coughing funny". She states the pain started in the lower center part of her back, describes it as a mix of "bone and muscle pain". She usually takes Naproxen and Baclofen but states she is no longer having relief. She was also seen here yesterday for the same thing and apparently stormed out when she did not get the requested Percocet she asked for. I explained to her that if she is having bone pain, she needs to have an MRI and that we do not treat chronic conditions in the ED. I also offered her Toradol, and explained this would help with her muscle pain, to which she said "I've had that and it didn't help". I told her that opioids are not indicated at this time and that if she is in this much pain she needs to follow up with a primary care provider or pain management. She was not happy with this response and stated that she didn't want any other medication at this time. Lower Back Pain Score (Numeric/FACES): 7 - Related Data Allergies Allergy/AdvReac Type Severity Reaction Status Date / Time No Known Allergies Allergy Verified 06/18/18 11:58 Home Meds: Home Meds Sertraline [Zoloft] 200 mg PO DAILY 12/31/14 [History] risperiDONE 4 mg PO DAILY 03/13/15 [History] ClonazePAM [KlonoPIN] 2 mg PO BEDTIME 11/13/16 [History] Naproxen 500 mg PO BID PRN 01/14/17 [History] Topiramate 25 mg PO DAILY 08/24/17 [History] Ibuprofen 600 mg PO QID PRN #40 tablet 11/11/17 [Rx] traMADol [Ultram] 50 mg PO Q6H PRN 12/04/17 [History] Acetaminophen [Tylenol Extra Strength] 1,500 mg PO Q6H 09/06/18 [History] Baclofen 20 mg PO TID PRN 06/18/18 [History] Past Medical History - Past Health History Medical/Surgical History: Denies Medical/Surgical History HEENT History: Reports: Impaired Vision Other HEENT History: Wears contacts. States had gum disease, states has dentures "but they don't fit right. 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, Musculoskeletal History: Reports: Back Pain, Chronic Neurological History: Reports: Headaches, Chronic Psychiatric History: Reports: Bipolar, Depression, Mood Swings, Schizophrenia, Other (See Below) Endocrine/Metabolic History: Reports: None Hematologic History: Reports: None Immunologic History: Reports: None Oncologic (Cancer) History: Reports: Other (See Below) Other Oncologic History: lump removed from right breast, not CA Dermatologic History: Reports: None - Infectious Disease History Infectious Disease History: Reports: None - Past Surgical History Head Surgeries/Procedures: Reports: None HEENT Surgical History: Reports: Adenoidectomy, Oral Surgery, Tonsillectomy GI Surgical History: Reports: Hernia, Abdominal Female Surgical History: Reports: Section, Other (See Below) Oncologic Surgical History: Reports: Biopsy of Breast Social & Family History - Family History Family Medical History: Noncontributory HEENT: Reports: None Cardiac: Reports: None Respiratory: Reports: None GI: Reports: None : Reports: None OBGYN: Reports: None Musculoskeletal: Reports: None Neurological: Reports: None Psychiatric: Reports: None Endocrine/Metabolic: Reports: Diabetes Mellitus, Type 3c Hematologic: Reports: None Immunologic: Reports: None Dermatologic: Reports: None Oncologic: Reports: Breast, Colon - Tobacco Use Smoking Status *Q: Current Every Day Smoker Years of Tobacco use: 15 Packs/Tins Daily: 1 - Caffeine Use Caffeine Use: Reports: Energy Drinks, Soda - Recreational Drug Use Recreational Drug Use: Yes Drug Use in Last 12 Months: Yes Recreational Drug Type: Reports: Marijuana/Hashish Recreational Drug Use Frequency: Not Used In Over 1 Month - Living Situation & Occupation Living situation: Reports: Single, with Significant Other (Boyfriend), with Family (1 child) Occupation: Unemployed ED ROS GENERAL - Review of Systems Review Of Systems: ROS reveals no pertinent complaints other than HPI. ED EXAM,LOWER BACK PAIN/INJURY - Physical Exam Exam: See Below Exam Limited By: No Limitations General Appearance: Alert, No Apparent Distress Eye Exam: Bilateral Eye: EOMI, Normal Inspection, PERRL Nose: Normal Inspection, Normal Mucosa, No Blood Throat/Mouth: Normal Inspection, Normal Lips, Normal Teeth, Normal Gums, Normal Oropharynx, Normal Voice, No Airway Compromise Head: Atraumatic, Normocephalic Neck: Normal Inspection, Supple, Non-Tender, Full Range of Motion Respiratory/Chest: No Respiratory Distress, Lungs Clear, Normal Breath Sounds, No Accessory Muscle Use, Chest Non-Tender Cardiovascular: Normal Peripheral Pulses, No Edema, No Gallop, No JVD, No Murmur , No Rub, Tachycardia GI/Abdominal: Normal Bowel Sounds, Soft, Non-Tender, No Organomegaly, No Distention, No Abnormal Bruit, No Mass Back Exam: Normal Inspection, Full Range of Motion Extremities: Normal Inspection, Normal Range of Motion, Non-Tender, No Pedal Edema, Normal Capillary Refill Neurological: Alert, Normal Mood/Affect, Normal Dorsiflexion, CN II-XII Intact, Normal Plantar Flexion, Normal Gait, Normal Reflexes, No Motor/Sensory Deficits , Oriented x 3 Psychiatric: Normal Affect, Normal Mood Skin Exam: Warm, Dry, Intact, Normal Color, No Rash Course - Vital Signs Last Recorded V/S: Last Vital Signs Temp 98.7 F 06/18/18 12:03 Pulse 102 H 06/18/18 12:03 Resp 16 06/18/18 12:03 BP 114/80 06/18/18 12:03 Pulse Ox 97 06/18/18 12:03 - Re-Assessments/Exams Free Text/Narrative Re-Assessment/Exam: 06/18/18 12:22 Informed by nursing that the pt left AMA before discharge could be completed. When asked if she would wait, she stated "No you didn't help me anyway". Departure - Departure Time of Disposition: 12:20 Disposition: Eloped 07 Clinical Impression: Chronic back pain, Drug-seeking behavior - Discharge Information *PRESCRIPTION DRUG MONITORING PROGRAM REVIEWED*: Yes *COPY OF PRESCRIPTION DRUG MONITORING REPORT IN PATIENT LANCE: Yes Referrals: Riya Clemons MD [Primary Care Provider] - Forms: ED Department Discharge Additional Instructions: Pt left before she could be discharged. Apparently told the nurse "we didn't help her anyway".
== END 2018-06-18 12:22 | disposition left against medical advice (07) ==
LOC: JD.ED 11:47
DX: M54.5 Low back pain (principal); G89.29 Other chronic pain; Z76.5 Malingerer [conscious simulation]; F17.210 Nicotine dependence, cigarettes, uncomplicated; F31.9 Bipolar disorder, unspecified; Z79.899 Other long term (current) drug therapy
CPT/HCPCS: 99281; 99283

== ENCOUNTER 2018-08-03 10:15 | Emergency (ER) | payer MEDICAID ==
[2018-08-03 10:25] VITALS: BP 130/84
--- NOTE | 2018-08-03 10:37 | EDM.PDOC ---
ED HPI GENERAL MEDICAL PROBLEM - General Chief Complaint: ENT Problem Stated Complaint: NOSE INJURY Time Seen by Provider: 08/03/18 10:25 Source of Information: Reports: Patient History Limitations: Reports: No Limitations - History of Present Illness INITIAL COMMENTS - FREE TEXT/NARRATIVE: Patient is a 33-year-old female who presents to the ED complaining of nose pain. Patient states she fell asleep on the toilet approximately 3:00 last night fell forward hitting her face on the door. There was no LOC. She awoke up immediately. Pain is minimal at this time and has been taking ibuprofen for discomfort. She did have a short episode of epistaxis that was controlled with direct pressure. Otherwise is no bleeding since. She is able to breathe out of both nares. Denies any cervical/back pain, headache, vision changes, pain to extremities, or anywhere else. She is on baclofen, clonazepam, risperidone, tramadol, and Zoloft. She ambulated into the emergency room on her own accord with no difficulties. Headache Pain Score (Numeric/FACES): 7 Nose Pain Score (Numeric/FACES): 7 - Related Data Allergies Allergy/AdvReac Type Severity Reaction Status Date / Time No Known Allergies Allergy Verified 06/18/18 11:58 Home Meds: Home Meds Sertraline [Zoloft] 200 mg PO DAILY 12/31/14 [History] risperiDONE 4 mg PO DAILY 03/13/15 [History] ClonazePAM [KlonoPIN] 4 mg PO BEDTIME 11/13/16 [History] Topiramate 25 mg PO DAILY 08/24/17 [History] traMADol [Ultram] 50 mg PO Q6H PRN 12/04/17 [History] Acetaminophen [Tylenol Extra Strength] 1,500 mg PO Q6H 12/18/17 [History] Baclofen 20 mg PO TID PRN 06/18/18 [History] Ibuprofen 600 mg PO QID PRN #30 tablet 08/03/18 [Rx] Past Medical History - Past Health History Medical/Surgical History: Denies Medical/Surgical History HEENT History: Reports: Impaired Vision Other HEENT History: Wears contacts. States had gum disease, states has dentures "but they don't fit right. 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, Musculoskeletal History: Reports: Back Pain, Chronic Neurological History: Reports: Headaches, Chronic Psychiatric History: Reports: Bipolar, Depression, Mood Swings, Schizophrenia, Other (See Below) Endocrine/Metabolic History: Reports: None Hematologic History: Reports: None Immunologic History: Reports: None Oncologic (Cancer) History: Reports: Other (See Below) Other Oncologic History: lump removed from right breast, not CA Dermatologic History: Reports: None - Infectious Disease History Infectious Disease History: Reports: None - Past Surgical History Head Surgeries/Procedures: Reports: None HEENT Surgical History: Reports: Adenoidectomy, Oral Surgery, Tonsillectomy GI Surgical History: Reports: Hernia, Abdominal Female Surgical History: Reports: Section, Other (See Below) Oncologic Surgical History: Reports: Biopsy of Breast Social & Family History - Family History Family Medical History: Noncontributory HEENT: Reports: None Cardiac: Reports: None Respiratory: Reports: None GI: Reports: None : Reports: None OBGYN: Reports: None Musculoskeletal: Reports: None Neurological: Reports: None Psychiatric: Reports: None Endocrine/Metabolic: Reports: Diabetes Mellitus, Type 3c Hematologic: Reports: None Immunologic: Reports: None Dermatologic: Reports: None Oncologic: Reports: Breast, Colon - Caffeine Use Caffeine Use: Reports: Energy Drinks - Living Situation & Occupation Living situation: Reports: Single, with Significant Other (Boyfriend), with Family (1 child) Occupation: Unemployed ED ROS ENT - Review of Systems Review Of Systems: ROS reveals no pertinent complaints other than HPI. ED EXAM, ENT - Physical Exam Exam: See Below Exam Limited By: No Limitations General Appearance: Alert, WD/WN, No Apparent Distress Eye Exam: Bilateral Eye: EOMI, Nystagmus (none noted), PERRL Ears: Normal External Exam, Normal Canal, Hearing Grossly Normal, Normal TMs Nose: Normal Mucousa, No Blood, Nasal Tenderness (Right-sided nasal swelling with tenderness with palpation. No septal hematoma. Nares are patent.) Mouth/Throat: Normal Inspection, Normal Gums, Normal Oropharynx. No: Normal Teeth Head: Atraumatic, Normocephalic, Facial Tenderness (Nasal tenderness). No: Scalp Abrasions, Scalp Ecchymosis, Scalp Hematoma, Scalp Tenderness, Facial Abrasions, Facial Ecchymosis, Facial Swelling Neck: Normal Inspection, Supple, Non-Tender Respiratory/Chest: No Respiratory Distress, Lungs Clear, Normal Breath Sounds, No Accessory Muscle Use, Chest Non-Tender Cardiovascular: Normal Peripheral Pulses, Regular Rate, Rhythm, No Murmur Back: Normal Inspection Extremities: Normal Inspection, Normal Range of Motion, Non-Tender Neurological: Alert, Oriented, CN II-XII Intact, Normal Cognition, Normal Gait, No Motor/Sensory Deficits Psychiatric: Normal Affect, Normal Mood Skin: Warm, Dry, Intact, Normal Color, No Rash. No: Ecchymosis Course - Vital Signs Last Recorded V/S: Last Vital Signs Temp 99.1 F 08/03/18 10:22 Pulse 100 08/03/18 10:22 Resp 19 08/03/18 10:22 BP 130/84 08/03/18 10:22 Pulse Ox 99 08/03/18 10:22 - Re-Assessments/Exams Free Text/Narrative Re-Assessment/Exam: Patient has tenderness to the nasal septum. Slight swelling noted in the right side with deviation noted. No septal hematoma. No pain with palpation of the remaining aspect of the face. I have offered to obtain CT of the nose to evaluate for any fractures. Patient has elected not to do so. She will follow up with ENT specialist of her choice. Requests ibuprofen to be discharged. Return precautions were discussed with the patient. Patient had no further questions or concerns Departure - Departure Time of Disposition: 10:32 Disposition: Home, Self-Care 01 Condition: Good Clinical Impression: Contusion of nose, initial encounter Contusion Qualifiers: Encounter type: initial encounter Contusion area: lower back Qualified Code(s) : S30.0XXA - Contusion of lower back and pelvis, initial encounter - Discharge Information Prescriptions: Ibuprofen 600 mg PO QID PRN #30 tablet PRN Reason: Pain Instructions: Contusion, [id number], Nasal Fracture Referrals: Riya Clemons MD [Primary Care Provider] - Forms: ED Department Discharge, ED Return to Work/School Form Additional Instructions: I suspect he have a nasal fracture but no imaging was obtained to verify. He did have some swelling to the right-sided ear nose as well what appears to be deviation of the nasal septum to the right. Apply ice to affected area 3-4 times a day, 20 minutes in duration, do not apply ice directly on the skin. Utilize ibuprofen and/or Tylenol in alternating fashion for pain. Followup with ENT Specialists of your choice for further evaluation in the next 3 to 7 days. Return to the E.D. for any new or worsening symptoms.
== END 2018-08-03 10:44 | disposition home or self-care (01) ==
LOC: JD.ED 10:15
DX: S00.33XA Contusion of nose, initial encounter (principal); S30.0XXA Contusion of lower back and pelvis, initial encounter; Z79.899 Other long term (current) drug therapy; W19.XXXA Unspecified fall, initial encounter
CPT/HCPCS: 99283

== ENCOUNTER 2018-12-27 15:49 | Emergency (ER) | payer MEDICAID ==
[2018-12-27 16:55] VITALS: BP 126/79; PULSE 107
--- NOTE | 2018-12-27 17:17 | EDM.PDOC ---
ED HPI GENERAL MEDICAL PROBLEM - General Chief Complaint: Abdominal Pain Stated Complaint: LEFT SIDE PAIN Time Seen by Provider: 12/27/18 16:47 Source of Information: Reports: Patient History Limitations: Reports: No Limitations - History of Present Illness INITIAL COMMENTS - FREE TEXT/NARRATIVE: The patient presents with left lower abdominal pain. This has been going on for a few weeks but the past few days have been worse. She has no nausea or vomiting. She had hernia surgery in 2017 on a left inguinal hernia. She had some pain come back and her doctor referred her to a surgeon a year after the surgery. She did not follow up because she felt better. Onset: Gradual Duration: Week(s): Location: Reports: Abdomen (left lower abdomen) Quality: Reports: Sharp Severity: Moderate Improves with: Reports: None Worsens with: Reports: None Associated Symptoms: Denies: Cough, Fever/Chills, Headaches, Nausea/Vomiting, Shortness of Breath Left Abdomen Pain Score (Numeric/FACES): 6 - Related Data Allergies Allergy/AdvReac Type Severity Reaction Status Date / Time No Known Allergies Allergy Verified 06/18/18 11:58 Home Meds: Home Meds Sertraline [Zoloft] 200 mg PO DAILY 12/31/14 [History] risperiDONE 4 mg PO DAILY 03/13/15 [History] Topiramate 25 mg PO DAILY 08/24/17 [History] Acetaminophen [Tylenol Extra Strength] 1,500 mg PO Q6H 12/18/17 [History] Baclofen 20 mg PO TID PRN 06/18/18 [History] Ibuprofen 600 mg PO QID PRN #30 tablet 08/03/18 [Rx] Past Medical History - Past Health History Medical/Surgical History: Denies Medical/Surgical History HEENT History: Reports: Impaired Vision Other HEENT History: Wears contacts. States had gum disease, states has dentures "but they don't fit right. 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, Musculoskeletal History: Reports: Back Pain, Chronic Neurological History: Reports: Headaches, Chronic Psychiatric History: Reports: Bipolar, Depression, Mood Swings, Schizophrenia, Other (See Below) Endocrine/Metabolic History: Reports: None Hematologic History: Reports: None Immunologic History: Reports: None Oncologic (Cancer) History: Reports: Other (See Below) Other Oncologic History: lump removed from right breast, not CA Dermatologic History: Reports: None - Infectious Disease History Infectious Disease History: Reports: None - Past Surgical History Head Surgeries/Procedures: Reports: None HEENT Surgical History: Reports: Adenoidectomy, Oral Surgery, Tonsillectomy GI Surgical History: Reports: Hernia, Abdominal Female Surgical History: Reports: Section, Other (See Below) Oncologic Surgical History: Reports: Biopsy of Breast Social & Family History - Family History Family Medical History: Noncontributory HEENT: Reports: None Cardiac: Reports: None Respiratory: Reports: None GI: Reports: None : Reports: None OBGYN: Reports: None Musculoskeletal: Reports: None Neurological: Reports: None Psychiatric: Reports: None Endocrine/Metabolic: Reports: Diabetes Mellitus, Type 3c Hematologic: Reports: None Immunologic: Reports: None Dermatologic: Reports: None Oncologic: Reports: Breast, Colon - Tobacco Use Smoking Status *Q: Current Every Day Smoker Years of Tobacco use: 15 Packs/Tins Daily: 1 - Caffeine Use Caffeine Use: Reports: Energy Drinks, Soda - Recreational Drug Use Recreational Drug Type: Reports: Marijuana/Hashish - Living Situation & Occupation Living situation: Reports: Single, with Significant Other (Boyfriend), with Family (1 child) Occupation: Unemployed ED ROS GENERAL - Review of Systems Review Of Systems: See Below Constitutional: Reports: No Symptoms HEENT: Reports: No Symptoms Respiratory: Reports: No Symptoms Cardiovascular: Reports: No Symptoms Endocrine: Reports: No Symptoms GI/Abdominal: Reports: Abdominal Pain. Denies: Diarrhea, Nausea, Vomiting : Reports: No Symptoms Musculoskeletal: Reports: No Symptoms Skin: Reports: No Symptoms ED EXAM, GI/ABD - Physical Exam Exam: See Below Exam Limited By: No Limitations General Appearance: Alert, No Apparent Distress Ears: Normal External Exam Nose: Normal Inspection Head: Atraumatic, Normocephalic Neck: Normal Inspection Respiratory/Chest: No Respiratory Distress, Lungs Clear, Normal Breath Sounds Cardiovascular: Regular Rate, Rhythm, No Edema, No Murmur GI/Abdominal Exam: Soft, Non-Tender, No Organomegaly, No Mass Extremities: Normal Inspection Neurological: Alert, Oriented, No Motor/Sensory Deficits Course - Vital Signs Last Recorded V/S: Last Vital Signs Temp 99.0 F 12/27/18 16:53 Pulse 107 H 09/15/19 16:53 Resp 20 12/27/18 16:53 BP 126/79 12/27/18 16:53 Pulse Ox 99 12/27/18 16:53 - Re-Assessments/Exams Free Text/Narrative Re-Assessment/Exam: 12/27/18 17:19 I do not feel a hernia. I will have her follow up with Dr Miranda. Departure - Departure Time of Disposition: 17:25 Disposition: Home, Self-Care 01 Condition: Good Clinical Impression: Abdominal pain Qualifiers: Abdominal location: left lower quadrant Qualified Code(s): R10.32 - Left lower quadrant pain - Discharge Information Referrals: Riya Clemons MD [Primary Care Provider] - 1 Week Lindy Collins MD [Physician] - 1 Week Forms: ED Department Discharge Additional Instructions: Take tylenol or motrin for pain. If that does not help, try the ultram. Follow up with Dr Miranda.
== END 2018-12-27 17:50 | disposition home or self-care (01) ==
LOC: SUPCPDRO 15:49 → JD.ED 15:49
DX: R10.32 Left lower quadrant pain (principal); F31.9 Bipolar disorder, unspecified; F20.9 Schizophrenia, unspecified; F17.210 Nicotine dependence, cigarettes, uncomplicated; Z79.899 Other long term (current) drug therapy; Z98.890 Other specified postprocedural states
CPT/HCPCS: 99282; 99283

== ENCOUNTER 2019-04-02 07:57 | Emergency (ER) | payer MEDICAID ==
[2019-04-02 08:06] VITALS: BP 138/93; PULSE 93
--- NOTE | 2019-04-02 08:21 | EDM.PDOC ---
ED HPI GENERAL MEDICAL PROBLEM - General Chief Complaint: Lower Extremity Injury/Pain Stated Complaint: L FOOT INJURY Time Seen by Provider: 04/02/19 08:01 Source of Information: Reports: Patient History Limitations: Reports: No Limitations - History of Present Illness INITIAL COMMENTS - FREE TEXT/NARRATIVE: Patient is a 33-year-old female who presents with complaints of left foot pain. She states that her foot was asleep when she got out of bed this morning and she rolled it. She states that she heard multiple cracks. She feels that she may have "rebroken her foot ". Approximate one year ago she had a fracture of the fifth metatarsal. She states that she is unable to move her toes without pain. Left Lower Feet Pain Score (Numeric/FACES): 8 - Related Data Allergies Allergy/AdvReac Type Severity Reaction Status Date / Time No Known Allergies Allergy Verified 02/24/19 14:47 Home Meds: Home Meds Sertraline [Zoloft] 200 mg PO DAILY 12/31/14 [History] risperiDONE 4 mg PO DAILY 03/13/15 [History] Topiramate 25 mg PO DAILY 08/24/17 [History] Acetaminophen [Tylenol Extra Strength] 1,500 mg PO Q6H 12/18/17 [History] Baclofen 20 mg PO TID PRN 06/18/18 [History] Ibuprofen 600 mg PO QID PRN #30 tablet 08/03/18 [Rx] HYDROcodone/Ibuprofen [Hydrocodone-Ibuprofen 10-200] 1 each PO Q6H PRN #20 tablet 02/24/19 [Rx] Hydrocodone/Acetaminophen [[place] 5-325 Tablet] 1 each PO Q4H PRN #10 tablet [Rx] Past Medical History - Past Health History Medical/Surgical History: Denies Medical/Surgical History HEENT History: Reports: Impaired Vision Other HEENT History: Wears contacts. States had gum disease, states has dentures "but they don't fit right. 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: Reports: Endometriosis, Musculoskeletal History: Reports: Back Pain, Chronic Neurological History: Reports: Headaches, Chronic Psychiatric History: Reports: Bipolar, Depression, Mood Swings, Schizophrenia Endocrine/Metabolic History: Reports: None Hematologic History: Reports: None Immunologic History: Reports: None Oncologic (Cancer) History: Reports: Other (See Below) Other Oncologic History: lump removed from right breast, not CA Dermatologic History: Reports: None - Infectious Disease History Infectious Disease History: Reports: None - Past Surgical History Head Surgeries/Procedures: Reports: None HEENT Surgical History: Reports: Adenoidectomy, Oral Surgery, Tonsillectomy GI Surgical History: Reports: Hernia, Abdominal Female Surgical History: Reports: Section Oncologic Surgical History: Reports: Biopsy of Breast Social & Family History - Family History Family Medical History: Noncontributory HEENT: Reports: None Cardiac: Reports: None Respiratory: Reports: None GI: Reports: None : Reports: None OBGYN: Reports: None Musculoskeletal: Reports: None Neurological: Reports: None Psychiatric: Reports: None Endocrine/Metabolic: Reports: Diabetes Mellitus, Type 3c Hematologic: Reports: None Immunologic: Reports: None Dermatologic: Reports: None Oncologic: Reports: Breast, Colon - Tobacco Use Smoking Status *Q: Current Every Day Smoker Years of Tobacco use: 15 Packs/Tins Daily: 1 - Caffeine Use Caffeine Use: Reports: Energy Drinks, Soda - Recreational Drug Use Recreational Drug Use: Yes Drug Use in Last 12 Months: Yes Recreational Drug Type: Reports: Marijuana/Hashish - Living Situation & Occupation Living situation: Reports: Single, with Significant Other (Boyfriend), with Family (1 child) Occupation: Unemployed Review of Systems - Review of Systems Review Of Systems: See Below Constitutional: Reports: No Symptoms Eyes: Reports: No Symptoms Ears: Reports: No Symptoms Nose: Reports: No Symptoms Mouth/Throat: Reports: No Symptoms Respiratory: Reports: No Symptoms Cardiovascular: Reports: No Symptoms GI/Abdominal: Reports: No Symptoms Genitourinary: Reports: No Symptoms Musculoskeletal: Reports: Foot Pain Skin: Reports: No Symptoms Neurological: Reports: No Symptoms Psychiatric: Reports: No Symptoms ED EXAM, GENERAL - Physical Exam Exam: See Below Exam Limited By: No Limitations General Appearance: Alert, WD/WN, No Apparent Distress Respiratory/Chest: No Respiratory Distress, Lungs Clear, Normal Breath Sounds, No Accessory Muscle Use, Chest Non-Tender Cardiovascular: Normal Peripheral Pulses, Regular Rate, Rhythm, No Murmur Extremities: Normal Inspection, Other (generalized tenderness over the dorsal and ventral aspect of the left foot. No errythema, edema, ecchymosis, or obvious deformity present.) Neurological: Alert, Oriented, Normal Cognition Psychiatric: Normal Affect, Normal Mood Skin Exam: Warm, Dry, Intact, Normal Color, No Rash Course - Vital Signs Last Recorded V/S: Last Vital Signs Temp 99.1 F 04/02/19 08:05 Pulse 93 04/02/19 08:05 Resp 18 04/02/19 08:05 BP 138/93 H 04/02/19 08:05 Pulse Ox 100 04/02/19 08:05 - Re-Assessments/Exams Free Text/Narrative Re-Assessment/Exam: 04/02/19 08:44 Foor xray reviewed by myself and Dr. Kumar. No new fractures seen when compared with images obtained in February. Discussed these findings with the pt and advised that we will call her if the radiologist's read is different than my interpretation. Pt states that she has a walking boot and crutches at home. I applied emmanuel wrap at this time and advised that she should apply her walking boot for comfort when she gets home. 04/02/19 10:32 Radiogists interpretation of xray also shows no new fractures. I did call and advise the patient of this. Departure - Departure Time of Disposition: 08:47 Disposition: Home, Self-Care 01 Condition: Fair Clinical Impression: Foot pain, left - Discharge Information *PRESCRIPTION DRUG MONITORING PROGRAM REVIEWED*: No *COPY OF PRESCRIPTION DRUG MONITORING REPORT IN PATIENT LANCE: No Prescriptions: Hydrocodone/Acetaminophen [[place] 5-325 Tablet] 1 each PO Q4H PRN #10 tablet PRN Reason: Pain Instructions: Foot Pain Referrals: Riya Clemons MD [Primary Care Provider] - Forms: ED Department Discharge Additional Instructions: You were seen in the emergency department this morning with left foot pain. The x-ray does not show any new fractures to the foot. The official read by the radiologist is still pending, however if his interpretation does show any new fracture you will be notified. An Emmanuel wrap has been applied in the ER. When you get home you may apply your walking boot for comfort. You may also use your crutches as needed for comfort. We recommend that you ice and elevate the extremity as much as possible. If the pain does not improve over the next week , you may call to schedule an appointment with orthopedist Dr. Tom. We recommend that you use over the counter tylenol or ibuprofen for pain. For pain not relieved by these means, you may take [place] 5/325 1 tab every 4 hours as needed. If you experience any new or worsening symptoms, please do not hesitate to return to the emergency department. Sepsis Event Note - Evaluation Sepsis Screening Result: No Definite Risk - Focused Exam Vital Signs: Vital Signs Temp Pulse Resp BP Pulse Ox 04/02/19 08:05 99.1 F 93 18 138/93 H 100 Date Exam was Performed: 04/02/19 Time Exam was Performed: 10:32
--- NOTE | 2019-04-02 09:12 | CR ---
Left foot: Four views of the left foot were obtained. Comparison: Prior left foot study of 02/24/19. Old healed fracture deformity seen within the fifth metacarpal. No acute fracture, dislocation or other bony abnormality is seen. Impression: 1. Old healed fracture deformity within the fifth metatarsal which appears healed which is stable from prior exam. 2. No additional abnormality is appreciated on left foot exam. Diagnostic code #2 This report was dictated in [place] Standard Time
== END 2019-04-02 09:04 | disposition home or self-care (01) ==
LOC: JD.ED 07:57
DX: M79.672 Pain in left foot (principal); F17.210 Nicotine dependence, cigarettes, uncomplicated; Z79.899 Other long term (current) drug therapy; Z98.890 Other specified postprocedural states
CPT/HCPCS: 73630-26-LT; 73630-LT; 99283; 99283-25

== ENCOUNTER 2019-11-06 18:18 | Emergency (ER) | payer MEDICAID, SELFPAY ==
[2019-11-06 18:49] VITALS: BP 130/89; PULSE 95
[2019-11-06] MEDS ORDERED: Ondansetron 4 MG/2 ML SDV IVPUSH ONE (20:04)
[2019-11-06] MEDS ORDERED: HYDROmorphone 0.5 MG/0.5 ML Syringe IVPUSH ONE (20:04)
--- NOTE | 2019-11-06 20:10 | EDM.PDOC ---
ED HPI GENERAL MEDICAL PROBLEM - General Chief Complaint: Abdominal Pain Stated Complaint: HERNIA PAIN Time Seen by Provider: 11/06/19 19:50 Source of Information: Reports: Patient History Limitations: Reports: No Limitations - History of Present Illness INITIAL COMMENTS - FREE TEXT/NARRATIVE: Patient is a 34-year-old female who presents to the emergency department with complaints of hernia pain. She states she has a hernia to the left of her umbilicus which she has had for a number of years. She normally has intermittent pain, however she is not able to manage it with Tylenol or ibuprofen. States that she has taken his medications today, however they gave her little relief. Last dose of ibuprofen was around 2:00 this afternoon. She has taken nothing since that time. She describes the pain as intermittent spasms. She has seen a general surgeon over at [place], Dr. Miranda. The plan is to surgically repair the hernia, however she is waiting till fall when the s urgery will fit better with her home life. She denies any nausea, vomiting, diarrhea, fever, or chills. Left Abdomen Pain Score (Numeric/FACES): 6 - Related Data Allergies Allergy/AdvReac Type Severity Reaction Status Date / Time No Known Allergies Allergy Verified 02/24/19 14:47 Home Meds: Home Meds Sertraline [Zoloft] 200 mg PO DAILY 12/31/14 [History] risperiDONE 4 mg PO DAILY 03/13/15 [History] Topiramate 25 mg PO DAILY 08/24/17 [History] Acetaminophen [Tylenol Extra Strength] 1,500 mg PO Q6H 12/18/17 [History] Baclofen 20 mg PO TID PRN 06/18/18 [History] Ibuprofen 600 mg PO QID PRN #30 tablet 08/03/18 [Rx] Past Medical History - Past Health History Medical/Surgical History: Denies Medical/Surgical History HEENT History: Reports: Impaired Vision Other HEENT History: Wears contacts. States had gum disease, states has dentures "but they don't fit right. 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: Reports: Endometriosis, Musculoskeletal History: Reports: Back Pain, Chronic Neurological History: Reports: Headaches, Chronic Psychiatric History: Reports: Bipolar, Depression, Mood Swings, Schizophrenia Endocrine/Metabolic History: Reports: None Hematologic History: Reports: None Immunologic History: Reports: None Oncologic (Cancer) History: Reports: Other (See Below) Other Oncologic History: lump removed from right breast, not CA Dermatologic History: Reports: None - Infectious Disease History Infectious Disease History: Reports: None - Past Surgical History Head Surgeries/Procedures: Reports: None HEENT Surgical History: Reports: Adenoidectomy, Oral Surgery, Tonsillectomy GI Surgical History: Reports: Hernia, Abdominal Female Surgical History: Reports: Section Oncologic Surgical History: Reports: Biopsy of Breast Social & Family History - Family History Family Medical History: Noncontributory HEENT: Reports: None Cardiac: Reports: None Respiratory: Reports: None GI: Reports: None : Reports: None OBGYN: Reports: None Musculoskeletal: Reports: None Neurological: Reports: None Psychiatric: Reports: None Endocrine/Metabolic: Reports: Diabetes Mellitus, Type 3c Hematologic: Reports: None Immunologic: Reports: None Dermatologic: Reports: None Oncologic: Reports: Breast, Colon - Tobacco Use Smoking Status *Q: Current Every Day Smoker Years of Tobacco use: 16 Packs/Tins Daily: 1 - Caffeine Use Caffeine Use: Reports: Soda - Recreational Drug Use Recreational Drug Type: Reports: Marijuana/Hashish Recreational Drug Use Frequency: Weekly - Living Situation & Occupation Living situation: Reports: Single, with Significant Other (Boyfriend), with Family (1 child) Occupation: Unemployed ED ROS GENERAL - Review of Systems Review Of Systems: See Below Constitutional: Reports: No Symptoms. Denies: Fever, Chills HEENT: Reports: No Symptoms Respiratory: Reports: No Symptoms Cardiovascular: Reports: No Symptoms Endocrine: Reports: No Symptoms GI/Abdominal: Reports: Abdominal Pain (Left of umbilicus). Denies: Nausea, Vomiting : Reports: No Symptoms Musculoskeletal: Reports: No Symptoms Skin: Reports: No Symptoms Neurological: Reports: No Symptoms Psychiatric: Reports: No Symptoms Hematologic/Lymphatic: Reports: No Symptoms Immunologic: Reports: No Symptoms ED EXAM, GI/ABD - Physical Exam Exam: See Below Exam Limited By: No Limitations General Appearance: Alert, WD/WN, No Apparent Distress Respiratory/Chest: No Respiratory Distress, Lungs Clear, Normal Breath Sounds, No Accessory Muscle Use, Chest Non-Tender Cardiovascular: Normal Peripheral Pulses, Regular Rate, Rhythm, No Edema, No Gallop, No JVD, No Murmur, No Rub GI/Abdominal Exam: Normal Bowel Sounds, Soft, No Organomegaly, No Distention, No Abnormal Bruit, No Mass, Pelvis Stable, Tender (Superficial tenderness to palpation to the left of the umbilicus. No palpable hernia.) Neurological: Alert, Oriented, CN II-XII Intact, Normal Cognition, Normal Gait, Normal Reflexes, No Motor/Sensory Deficits Psychiatric: Normal Affect, Normal Mood Skin Exam: Warm, Dry, Intact, Normal Color, No Rash Course - Vital Signs Last Recorded V/S: Last Vital Signs Temp 97.1 F 11/06/19 18:46 Pulse 95 11/06/19 18:46 Resp 20 11/06/19 18:46 BP 130/89 11/06/19 18:46 Pulse Ox 94 L 11/06/19 18:46 - Orders/Labs/Meds Labs: Laboratory Tests 11/06/19 11/06/19 Range/Units 20:20 20:20 WBC 8.55 (3.98-10.04) K/mm3 RBC 5.14 (3.98-5.22) M/mm3 Hgb 15.9 H D (11.2-15.7) gm/dl Hct 46.9 H (34.1-44.9) % MCV 91.2 (79.4-94.8) fl MCH 30.9 (25.6-32.2) pg MCHC 33.9 (32.2-35.5) g/dl RDW Std Deviation 47.2 H (36.4-46.3) fL Plt Count 333 (182-369) K/mm3 MPV 9.3 L (9.4-12.3) fl Neut % (Auto) 65.2 (34.0-71.1) % Lymph % (Auto) 25.6 (19.3-51.7) % [place] % (Auto) 5.5 (4.7-12.5) % Eos % (Auto) 3.0 (0.7-5.8) Baso % (Auto) 0.5 (0.1-1.2) % Neut # (Auto) 5.57 (1.56-6.13) K/mm3 Lymph # (Auto) 2.19 (1.18-3.74) K/mm3 [place] # (Auto) 0.47 H (0.24-0.36) K/mm3 Eos # (Auto) 0.26 (0.04-0.36) K/mm3 Baso # (Auto) 0.04 (0.01-0.08) K/mm3 Sodium 138 (136-145) mEq/L Potassium 3.7 (3.5-5.1) mEq/L Chloride 104 (98-107) mEq/L Carbon Dioxide 21 (21-32) mEq/L Anion Gap 16.7 H (5-15) BUN 10 (7-18) mg/dL Creatinine 0.8 (0.55-1.02) mg/dL Est Cr Clr Drug Dosing 90.00 mL/min Estimated GFR (MDRD) > 60 (>60) mL/min BUN/Creatinine Ratio 12.5 L (14-18) Glucose 97 (74-106) mg/dL Calcium 9.1 (8.5-10.1) mg/dL Total Bilirubin 0.5 (0.2-1.0) mg/dL AST 13 L (15-37) U/L ALT 17 (14-59) U/L Alkaline Phosphatase 98 (46-116) U/L C-Reactive Protein 0.6 (<1.0) mg/dL Total Protein 7.3 (6.4-8.2) g/dl Albumin 4.0 (3.4-5.0) g/dl Globulin 3.3 gm/dL Albumin/Globulin Ratio 1.2 (1-2) Lipase 63 L (73-393) U/L Meds: Medications Discontinued Medications Generic Name Dose Route Start Last Admin Trade Name Freq PRN Reason Stop Dose Admin Hydromorphone HCl 0.5 mg 11/06/19 20:04 11/06/19 20:23 Dilaudid IVPUSH 11/06/19 20:05 0.5 mg ONETIME ONE Administration Ondansetron HCl 4 mg 11/06/19 20:04 11/06/19 20:24 Zofran IVPUSH 11/06/19 20:05 4 mg ONETIME ONE Administration - Re-Assessments/Exams Free Text/Narrative Re-Assessment/Exam: I have ordered an ultrasound to look for the presence of a hernia. Also complete a CBC, CMP, CRP, and lipase. I have ordered Dilaudid 0.5 mg IV as well as Zofran 4 mg IV. 11/06/19 21:20 Ultrasound of the abdomen showed a small fat-containing umbilical hernia measuring approximately 6 mm. There is no bowel appreciated extending into the hernia. Patient did have improvement after the Dilaudid and Zofran. Blood work was grossly unremarkable. I will give the patient a short course of Bushnell through the [facility] for pain. Recommend that she call [facility] first thing Friday to follow-up with Dr. Miranda. Discharge instructions as documented. Departure - Departure Time of Disposition: 21:22 Disposition: Home, Self-Care 01 Condition: Good Clinical Impression: Hernia, umbilical Qualifiers: Obstruction and gangrene presence: without obstruction or gangrene Qualified Code(s): K42.9 - Umbilical hernia without obstruction or gangrene - Discharge Information *PRESCRIPTION DRUG MONITORING PROGRAM REVIEWED*: No *COPY OF PRESCRIPTION DRUG MONITORING REPORT IN PATIENT LANCE: No Instructions: Hernia, Adult Referrals: Riya Clemons MD [Primary Care Provider] - Forms: ED Department Discharge Additional Instructions: You were seen in the emergency department today for pain near your umbilical hernia. Work-up included blood work and an ultrasound of your abdomen. Ult rasound did show a small, 6 mm umbilical hernia containing fat. No bowel was visualized within the hernia. While in the ER, he received a dose of Dilaudid and Zofran. Recommend you continue to use [id number] Tylenol or ibuprofen as needed for pain. For pain not relieved by these measures, a prescription for Bushnell has been provided. Take this medication only as prescribed. Do not drive or work for 12 hours after taking as it is narcotic and it can be sedating. I would recommend that you contact [facility] first thing Friday to let Dr. Miranda know of the discomfort you are experiencing. Return to the ER as needed. Sepsis Event Note (ED) - Evaluation Sepsis Screening Result: No Definite Risk - Focused Exam Vital Signs: Vital Signs Temp Pulse Resp BP Pulse Ox 11/06/19 18:46 97.1 F 95 20 130/89 94 L
--- NOTE | 2019-11-06 21:03 | US ---
Limited abdominal ultrasound: Multiple real-time images around the umbilicus were obtained. Small umbilical hernia is seen. Hernia opening measures about 6 mm. Fat seen to extend into this hernia. No definite bowel is appreciated to extend into this hernia. Impression: 1. Small fat-containing umbilical hernia. Diagnostic code #2 This report was dictated in MDT
== END 2019-11-06 22:01 | disposition home or self-care (01) ==
LOC: JD.ED 18:18
DX: K42.9 Umbilical hernia without obstruction or gangrene (principal); F31.9 Bipolar disorder, unspecified; Z98.890 Other specified postprocedural states; Z79.899 Other long term (current) drug therapy
CPT/HCPCS: 36415; 76705; 80053; 83690; 85025; 86140; 96374; 96375; 99284; J1170; J2405

== ENCOUNTER 2019-12-01 12:55 | Emergency (ER) | payer MEDICAID ==
[2019-12-01 13:10] VITALS: BP 133/89; PULSE 95
[2019-12-01] MEDS ORDERED: Ketorolac 60 MG/2 ML SDV IM ONE (13:40)
--- NOTE | 2019-12-01 14:22 | EDM.PDOC ---
ED HPI GENERAL MEDICAL PROBLEM - General Chief Complaint: Upper Extremity Injury/Pain Stated Complaint: L ARM PAIN Time Seen by Provider: 12/01/19 13:05 Source of Information: Reports: Patient History Limitations: Reports: No Limitations - History of Present Illness INITIAL COMMENTS - FREE TEXT/NARRATIVE: Patient is a 34-year-old female who presents to the emergency department with complaints of left upper arm pain that started yesterday afternoon. She cannot think of a specific injury to the area, however states a few hours prior to the onset of pain she was carrying groceries in her house. She describes the pain as a dull aching to her biceps area on her left arm. Pain is worse when she lets the arm hang freely at her side. She has no chest pain or shortness of br eath. States that she took her last 2 [place] last night which did help. This morning she took Tylenol with little relief. She did ice the area last evening as well. She denies any history of blood clots. Left Upper Arm Pain Score (Numeric/FACES): 5 - Related Data Allergies Allergy/AdvReac Type Severity Reaction Status Date / Time No Known Allergies Allergy Verified 12/01/19 13:05 Home Meds: Home Meds Sertraline [Zoloft] 200 mg PO DAILY 12/31/14 [History] risperiDONE 4 mg PO DAILY 03/13/15 [History] Topiramate 25 mg PO DAILY 08/24/17 [History] Acetaminophen [Tylenol Extra Strength] 1,500 mg PO Q6H 12/18/17 [History] Baclofen 20 mg PO TID PRN 06/18/18 [History] Ibuprofen 600 mg PO QID PRN #30 tablet 08/03/18 [Rx] Acetaminophen/HYDROcodone [[place] 325-5 MG] 1 tab PO Q4H PRN #10 tablet 12/01/19 [Rx] Past Medical History - Past Health History Medical/Surgical History: Denies Medical/Surgical History HEENT History: Reports: Impaired Vision Other HEENT History: Wears contacts. States had gum disease, states has dentures "but they don't fit right. 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: Endometriosis, Musculoskeletal History: Reports: Back Pain, Chronic Neurological History: Reports: Headaches, Chronic Psychiatric History: Reports: Bipolar, Depression, Mood Swings, Schizophrenia Endocrine/Metabolic History: Reports: None Hematologic History: Reports: None Immunologic History: Reports: None Oncologic (Cancer) History: Reports: Other (See Below) Other Oncologic History: lump removed from right breast, not [place] Dermatologic History: Reports: None - Infectious Disease History Infectious Disease History: Reports: None - Past Surgical History Head Surgeries/Procedures: Reports: None HEENT Surgical History: Reports: Adenoidectomy, Oral Surgery, Tonsillectomy GI Surgical History: Reports: Hernia, Abdominal Female Surgical History: Reports: Section Oncologic Surgical History: Reports: Biopsy of Breast Social & Family History - Family History Family Medical History: Noncontributory HEENT: Reports: None Cardiac: Reports: None Respiratory: Reports: None GI: Reports: None : Reports: None OBGYN: Reports: None Musculoskeletal: Reports: None Neurological: Reports: None Psychiatric: Reports: None Endocrine/Metabolic: Reports: Diabetes Mellitus, Type 3c Hematologic: Reports: None Immunologic: Reports: None Dermatologic: Reports: None Oncologic: Reports: Breast, Colon - Tobacco Use Smoking Status *Q: Current Every Day Smoker Years of Tobacco use: 17 Packs/Tins Daily: 1 - Caffeine Use Caffeine Use: Reports: Energy Drinks, Soda - Recreational Drug Use Recreational Drug Use: Yes Drug Use in Last 12 Months: Yes Recreational Drug Type: Reports: Marijuana/Hashish Recreational Drug Use Frequency: Socially - Living Situation & Occupation Living situation: Reports: Single, with Significant Other (Boyfriend), with Family (1 child) Occupation: Unemployed Review of Systems - Review of Systems Review Of Systems: Comprehensive ROS is negative, except as noted in HPI. ED EXAM, GENERAL - Physical Exam Exam: See Below Exam Limited By: No Limitations General Appearance: Alert, WD/WN, No Apparent Distress Respiratory/Chest: No Respiratory Distress, Lungs Clear, Normal Breath Sounds, No Accessory Muscle Use, Chest Non-Tender Cardiovascular: Normal Peripheral Pulses, Regular Rate, Rhythm, No Edema, No Gallop, No JVD, No Murmur, No Rub Extremities: Normal Inspection, Normal Range of Motion, No Pedal Edema, Normal Capillary Refill, Other (Tenderness to palpation over the left bicep muscle.) Neurological: Alert, Oriented, CN II-XII Intact, Normal Cognition, Normal Gait, Normal Reflexes, No Motor/Sensory Deficits Psychiatric: Normal Affect, Normal Mood Skin Exam: Warm, Dry, Intact, Normal Color, No Rash Course - Vital Signs Last Recorded V/S: Last Vital Signs Temp 98.2 F 12/01/19 13:03 Pulse 95 12/01/19 13:03 Resp 18 12/01/19 13:03 BP 133/89 12/01/19 13:03 Pulse Ox 99 12/01/19 13:03 - Orders/Labs/Meds Meds: Medications Discontinued Medications Generic Name Dose Route Start Last Admin Trade Name Freq PRN Reason Stop Dose Admin Ketorolac Tromethamine 60 mg 12/01/19 13:40 12/01/19 14:50 Toradol IM 12/01/19 13:41 60 mg ONETIME ONE Administration - Re-Assessments/Exams Free Text/Narrative Re-Assessment/Exam: Ultrasound of the left upper extremity was negative for any signs of DVT, however there was found to be a soft tissue abnormality in the area where the patient is complaining of pain. Radiologist recommended a follow-up MRI study. Discussed these findings with the patient. I will write for an outpatient MRI of the left shoulder with results being sent to her primary care provider, Dr. Riya Young. Recommend that she follow-up with her primary care provider a few days after the MRI is completed. I will write for a short course of [place] for pain. Discharge instructions documented. Departure - Departure Time of Disposition: 15:49 Disposition: Home, Self-Care 01 Condition: Good Clinical Impression: Left upper arm pain - Discharge Information *PRESCRIPTION DRUG MONITORING PROGRAM REVIEWED*: Yes *COPY OF PRESCRIPTION DRUG MONITORING REPORT IN PATIENT LANCE: No Prescriptions: Acetaminophen/HYDROcodone [[place] 325-5 MG] 1 tab PO Q4H PRN #10 tablet PRN Reason: Pain Referrals: Riya Clemons MD [Primary Care Provider] - Forms: ED Department Discharge Additional Instructions: You were seen in the emergency department today for left upper arm pain. Ultrasound was done and showed no blood clots, however there was an area of soft tissue abnormality visualized. Radiologist recommends an MRI be completed. An MRI has been ordered on an outpatient basis. You will be contacted to set up an appointment for this. I would recommend that you schedule an appointment with your primary care provider for after the MRI is completed to review the results and for ongoing treatment. Recommend that you use [id number] ibuprofen as needed for pain. For pain not relieved by this, a prescription for [place] has been provided. Take this medication only as prescribed and do not drive or work for 12 hours after taking it. Ice over the area intermittently for comfort. Return to the ER as needed. Sepsis Event Note (ED) - Evaluation Sepsis Screening Result: No Definite Risk - Focused Exam Vital Signs: Vital Signs Temp Pulse Resp BP Pulse Ox 12/01/19 13:03 98.2 F 95 18 133/89 99
--- NOTE | 2019-12-01 15:18 | US ---
Left upper extremity deep venous ultrasound: Duplex and color Doppler evaluation was obtained of the left internal jugular and right internal jugular. Left subclavian, axillary, basilic, brachial, cephalic as well as radial and ulnar veins. Findings: Large soft tissue abnormality is seen within the left shoulder described as area of pain. Normal phasic flow, augmentation and compression is seen within the visualized veins. Impression: 1. Soft tissue abnormality with the left shoulder in area of pain. Recommend MRI study of the left shoulder to further evaluate. 2. No evidence of venous thrombosis within the left upper extremity. Diagnostic code #9 This report was dictated in MDT
== END 2019-12-01 16:11 | disposition home or self-care (01) ==
LOC: JD.ED 12:55
DX: M79.622 Pain in left upper arm (principal); F31.9 Bipolar disorder, unspecified; F17.210 Nicotine dependence, cigarettes, uncomplicated; Z79.899 Other long term (current) drug therapy
CPT/HCPCS: 93971; 96372; 99283; J1885

== ENCOUNTER 2019-12-19 18:28 | Emergency (ER) | payer MEDICAID ==
--- NOTE | 2019-12-19 19:42 | EDM.PDOC ---
ED HPI GENERAL MEDICAL PROBLEM - General Chief Complaint: Lower Extremity Injury/Pain Stated Complaint: FOOT INJURY Time Seen by Provider: 12/19/19 18:47 Source of Information: Reports: Patient History Limitations: Reports: No Limitations - History of Present Illness INITIAL COMMENTS - FREE TEXT/NARRATIVE: Patient is a 34-year-old female presenting to the emergency department with complaints of left midfoot pain. States she stepped wrong on the stairs yesterday and since that time has been having pain to the area. She has been able to ambulate on the foot, however it is painful. She has a history of previous fracture to her fifth metatarsal, however her pain is not localized to this area. States that she took Tylenol and ibuprofen for pain with little relief. Left Foot Pain Score (Numeric/FACES): 7 - Related Data Allergies Allergy/AdvReac Type Severity Reaction Status Date / Time No Known Allergies Allergy Verified 12/01/19 13:05 Home Meds: Home Meds Sertraline [Zoloft] 200 mg PO DAILY 12/31/14 [History] risperiDONE 4 mg PO DAILY 03/13/15 [History] Topiramate 25 mg PO DAILY 08/24/17 [History] Acetaminophen [Tylenol Extra Strength] 1,500 mg PO Q6H 12/18/17 [History] Baclofen 20 mg PO TID PRN 06/18/18 [History] Ibuprofen 600 mg PO QID PRN #30 tablet 08/03/18 [Rx] Acetaminophen/HYDROcodone [[place] 325-5 MG] 1 tab PO Q4H PRN #10 tablet 12/01/19 [Rx] Past Medical History - Past Health History Medical/Surgical History: Denies Medical/Surgical History HEENT History: Reports: Impaired Vision Other HEENT History: Wears contacts. States had gum disease, states has dentures "but they don't fit right. 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, Musculoskeletal History: Reports: Back Pain, Chronic Neurological History: Reports: Headaches, Chronic Psychiatric History: Reports: Bipolar, Depression, Mood Swings, Schizophrenia Endocrine/Metabolic History: Reports: None Hematologic History: Reports: None Immunologic History: Reports: None Oncologic (Cancer) History: Reports: Other (See Below) Other Oncologic History: lump removed from right breast, not [place] Dermatologic History: Reports: None - Infectious Disease History Infectious Disease History: Reports: None - Past Surgical History Head Surgeries/Procedures: Reports: None HEENT Surgical History: Reports: Adenoidectomy, Oral Surgery, Tonsillectomy GI Surgical History: Reports: Hernia, Abdominal Female Surgical History: Reports: Section Oncologic Surgical History: Reports: Biopsy of Breast Social & Family History - Family History Family Medical History: Noncontributory HEENT: Reports: None Cardiac: Reports: None Respiratory: Reports: None GI: Reports: None : Reports: None OBGYN: Reports: None Musculoskeletal: Reports: None Neurological: Reports: None Psychiatric: Reports: None Endocrine/Metabolic: Reports: Diabetes Mellitus, Type 3c Hematologic: Reports: None Immunologic: Reports: None Dermatologic: Reports: None Oncologic: Reports: Breast, Colon - Tobacco Use Smoking Status *Q: Current Every Day Smoker Years of Tobacco use: 15 Packs/Tins Daily: 1 - Caffeine Use Caffeine Use: Reports: Energy Drinks, Soda - Recreational Drug Use Recreational Drug Use: Yes Drug Use in Last 12 Months: Yes Recreational Drug Type: Reports: Marijuana/Hashish Recreational Drug Use Frequency: Socially - Living Situation & Occupation Living situation: Reports: Single, with Significant Other (Boyfriend), with Family (1 child) Occupation: Unemployed Review of Systems - Review of Systems Review Of Systems: Comprehensive ROS is negative, except as noted in HPI. ED EXAM, GENERAL - Physical Exam Exam: See Below Exam Limited By: No Limitations General Appearance: Alert, WD/WN, No Apparent Distress Respiratory/Chest: No Respiratory Distress, Lungs Clear, Normal Breath Sounds, No Accessory Muscle Use, Chest Non-Tender Cardiovascular: Normal Peripheral Pulses, Regular Rate, Rhythm, No Edema, No Gallop, No JVD, No Murmur, No Rub Extremities: Other (Tenderness to palpation over the mid second third and fourth metatarsals. No swelling or ecchymosis noted.) Neurological: Alert, Oriented, CN II-XII Intact, Normal Cognition, Normal Gait, Normal Reflexes, No Motor/Sensory Deficits Psychiatric: Normal Affect, Normal Mood Skin Exam: Warm, Dry, Intact, Normal Color, No Rash Course - Vital Signs Last Recorded V/S: Last Vital Signs Temp 98.7 F 12/19/19 18:33 Pulse 81 12/19/19 18:33 Resp 16 12/19/19 18:33 BP 125/103 H 12/19/19 18:33 Pulse Ox 98 12/19/19 18:33 - Orders/Labs/Meds Orders: Active Orders 24 hr Category Date Time Status Foot Comp Min 3V Lt [CR] Stat Exams 12/19/19 19:12 Taken - Re-Assessments/Exams Free Text/Narrative Re-Assessment/Exam: 12/19/19 19:40 X-ray of the left foot shows an old fracture of the fifth metatarsal, but no evidence of new fractures. This is not the area where she is complaining of pain. Discussed with patient that she likely strained her foot. Recommend [id number] Tylenol and ibuprofen for pain. Patient agreed with this initially, however as I was leaving the room she asked for additional pain medications. I educated her that in light of a fracture, I do not feel that narcotic pain medications are indicated at this point. NSAIDs would be most beneficial for her. I offered her an injection of Toradol. Patient states that she took oxycodone 10 mg and that did not even help so she does not think that ibuprofen or toradol is going to work. In review of the [place] [employer]IA [employer], pt has never been prescribed oxycodone 10mg, which raises concern for misuse of opiod pain medications. She then asked if I would prescribe her some [place]. I reiterated that I do not think narcotic pain management is appropriate in this situation. I offered her Naprosyn 500 mg. She states she has a bottle of this at home and will use this. Advised that she may use her walking boot or crutches that she has at home as needed. Recommend ice and elevation. Follow-up with Dr. Tom, orthopedist if pain not much improved over the next week. Return to the ER as needed. Departure - Departure Time of Disposition: 19:42 Disposition: Home, Self-Care 01 Condition: Good Clinical Impression: Foot pain, left, Drug-seeking behavior - Discharge Information *PRESCRIPTION DRUG MONITORING PROGRAM REVIEWED*: Yes *COPY OF PRESCRIPTION DRUG MONITORING REPORT IN PATIENT LANCE: No Instructions: Foot Pain Referrals: Riya Clemons MD [Primary Care Provider] - Larry Tom MD [Physician] - Forms: ED Department Discharge Additional Instructions: You were seen in the emergency department today for left foot pain. X-ray was completed and showed no acute fractures. It is likely that you strained ligaments in your foot when he stepped wrong on the steps. An Emmanuel wrap has been applied for comfort. You may use your crutches that you have at home as needed. Recommend that you ice and elevate the extremity intermittently for the next few days. You may use [id number] Tylenol or ibuprofen or the prescription strength Naprosyn that you have at home pain. If you are still experiencing substantial discomfort after 1 week, recommend that you follow-up with orthopedist, Dr. Tom. The number to schedule with him as listed below. Return to the ER as needed. Sepsis Event Note (ED) - Evaluation Sepsis Screening Result: No Definite Risk - Focused Exam Vital Signs: Vital Signs Temp Pulse Resp BP Pulse Ox 12/19/19 18:33 98.7 F 81 16 125/103 H 98 - My Orders Last 24 Hours: My Active Orders 12/19/19 19:12 Foot Comp Min 3V Lt [CR] Stat - Assessment/Plan Last 24 Hours: My Active Orders 12/19/19 19:12 Foot Comp Min 3V Lt [CR] Stat
[2019-12-19 19:48] VITALS: BP 125/103; PULSE 81
--- NOTE | 2019-12-20 11:28 | CR ---
Left foot: 3 views of the left foot were obtained. Comparison: Prior left foot study of 04/02/19. Old healed fracture deformity is noted within the shaft of the fifth metatarsal. Alignment is stable from previous exam. No acute fracture or other bony abnormality is appreciated. Impression: 1. Old healed fracture deformity. 2. Nothing acute is seen on left foot study. Diagnostic code #2 This report was dictated in MDT
== END 2019-12-19 19:52 | disposition home or self-care (01) ==
LOC: JD.ED 18:28
DX: M79.672 Pain in left foot (principal); Z76.5 Malingerer [conscious simulation]; F17.210 Nicotine dependence, cigarettes, uncomplicated; Z79.899 Other long term (current) drug therapy
CPT/HCPCS: 73630-26-LT; 73630-LT; 99283

== ENCOUNTER 2020-02-13 17:55 | Emergency (ER) | payer MEDICAID ==
[2020-02-13 18:06] VITALS: BP 124/81; PULSE 94
--- NOTE | 2020-02-13 18:22 | EDM.PDOC ---
ED HPI GENERAL MEDICAL PROBLEM - General Chief Complaint: Upper Extremity Injury/Pain Stated Complaint: LT ARM PAIN Time Seen by Provider: 02/13/20 18:07 Source of Information: Reports: Patient History Limitations: Reports: No Limitations - History of Present Illness INITIAL COMMENTS - FREE TEXT/NARRATIVE: The patient presents with left arm pain. This has been going on since about November. She was seen here and an US was done and there was a possible lypoma in the area. They recommended an MRI be done. The patient has been delaying it because she is afraid of tight spaces. She says the pain has been worse the past few days. She did not injure her arm in any way. Onset: Gradual Duration: Week(s): Location: Reports: Upper Extremity, Left Quality: Reports: Sharp Severity: Moderate Improves with: Reports: Immobilization Worsens with: Reports: Movement Context: Denies: Trauma Associated Symptoms: Reports: No Other Symptoms - Related Data Allergies Allergy/AdvReac Type Severity Reaction Status Date / Time No Known Allergies Allergy Verified 12/01/19 13:05 Home Meds: Home Meds Sertraline [Zoloft] 200 mg PO DAILY 12/31/14 [History] risperiDONE 4 mg PO DAILY 03/13/15 [History] Topiramate 25 mg PO DAILY 08/24/17 [History] Acetaminophen [Tylenol Extra Strength] 1,500 mg PO Q6H 12/18/17 [History] Baclofen 20 mg PO TID PRN 06/18/18 [History] Ibuprofen 600 mg PO QID PRN #30 tablet 08/03/18 [Rx] Acetaminophen/HYDROcodone [[place] 325-5 MG] 1 tab PO Q4H PRN #10 tablet 12/01/19 [Rx] Past Medical History - Past Health History Medical/Surgical History: Denies Medical/Surgical History HEENT History: Reports: Impaired Vision Other HEENT History: Wears contacts. States had gum disease, states has dentures "but they don't fit right. 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, Musculoskeletal History: Reports: Back Pain, Chronic Neurological History: Reports: Headaches, Chronic Psychiatric History: Reports: Bipolar, Depression, Mood Swings, Schizophrenia Endocrine/Metabolic History: Reports: None Hematologic History: Reports: None Immunologic History: Reports: None Oncologic (Cancer) History: Reports: Other (See Below) Other Oncologic History: lump removed from right breast, not [place] Dermatologic History: Reports: None - Infectious Disease History Infectious Disease History: Reports: None - Past Surgical History Head Surgeries/Procedures: Reports: None HEENT Surgical History: Reports: Adenoidectomy, Oral Surgery, Tonsillectomy GI Surgical History: Reports: Hernia, Abdominal Female Surgical History: Reports: Section Oncologic Surgical History: Reports: Biopsy of Breast Social & Family History - Family History Family Medical History: Noncontributory HEENT: Reports: None Cardiac: Reports: None Respiratory: Reports: None GI: Reports: None : Reports: None OBGYN: Reports: None Musculoskeletal: Reports: None Neurological: Reports: None Psychiatric: Reports: None Endocrine/Metabolic: Reports: Diabetes Mellitus, Type 3c Hematologic: Reports: None Immunologic: Reports: None Dermatologic: Reports: None Oncologic: Reports: Breast, Colon - Tobacco Use Tobacco Use Status *Q: Unknown Ever Used Tobacco - Caffeine Use Caffeine Use: Reports: Energy Drinks, Soda - Living Situation & Occupation Living situation: Reports: Single, with Significant Other (Boyfriend), with Family (1 child) Occupation: Unemployed Review of Systems - Review of Systems Review Of Systems: See Below Constitutional: Reports: No Symptoms Eyes: Reports: No Symptoms Ears: Reports: No Symptoms Nose: Reports: No Symptoms Mouth/Throat: Reports: No Symptoms Respiratory: Reports: No Symptoms Cardiovascular: Reports: No Symptoms GI/Abdominal: Reports: No Symptoms Genitourinary: Reports: No Symptoms Musculoskeletal: Reports: Other (left arm pain) ED EXAM, GENERAL - Physical Exam Exam: See Below Exam Limited By: No Limitations General Appearance: Alert, No Apparent Distress Ears: Normal External Exam Nose: Normal Inspection Head: Atraumatic, Normocephalic Neck: Normal Inspection Respiratory/Chest: No Respiratory Distress, Normal Breath Sounds Extremities: Other (Pain upon palpation to the left upper arm. Good sensation and pulses distally. No mass was felt on exam.) Course - Vital Signs Last Recorded V/S: Last Vital Signs Temp 98.7 F 02/13/20 18:02 Pulse 94 02/13/20 18:02 Resp 16 02/13/20 18:02 BP 124/81 02/13/20 18:02 Pulse Ox 97 02/13/20 18:02 Departure - Departure Time of Disposition: 18:25 Disposition: Home, Self-Care 01 Condition: Good Clinical Impression: Left arm pain - Discharge Information *PRESCRIPTION DRUG MONITORING PROGRAM REVIEWED*: Not Applicable *COPY OF PRESCRIPTION DRUG MONITORING REPORT IN PATIENT LANCE: Not Applicable Referrals: Riya Clemons MD [Primary Care Provider] - Additional Instructions: Follow up with your doctor and get the MRI it will help us figure out what this exactly is and what we can do about it. Take tylenol or motrin for pain. If that does not help, try the hydrocodone. Sepsis Event Note (ED) - Evaluation Sepsis Screening Result: No Definite Risk - Focused Exam Vital Signs: Vital Signs Temp Pulse Resp BP Pulse Ox 02/13/20 18:02 98.7 F 94 16 124/81 97
== END 2020-02-13 18:32 | disposition home or self-care (01) ==
LOC: JD.ED 17:55
DX: M79.602 Pain in left arm (principal); F31.9 Bipolar disorder, unspecified; F20.9 Schizophrenia, unspecified; Z79.899 Other long term (current) drug therapy; Z90.49 Acquired absence of other specified parts of digestive tract
CPT/HCPCS: 99283

== ENCOUNTER 2020-05-02 13:45 | Emergency (ER) | payer MEDICAID ==
[2020-05-02 13:57] VITALS: BP 118/77; PULSE 128
--- NOTE | 2020-05-02 14:16 | EDM.PDOC ---
ED HPI GENERAL MEDICAL PROBLEM - General Chief Complaint: Lower Extremity Injury/Pain Stated Complaint: RIGHT FOOT INJURY Time Seen by Provider: 05/02/20 13:53 Source of Information: Reports: Patient History Limitations: Reports: No Limitations - History of Present Illness INITIAL COMMENTS - FREE TEXT/NARRATIVE: 34-year-old female presents to the emergency department with complaints of right foot/ankle pain that started last evening. Patient states that she was running across the street and slipped on the ice. She states her right ankle rolled laterally and she heard a popping and has not been able to bear weight since. States she has been taking Tylenol and ibuprofen and neither of these have helped much with the discomfort. 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-motrin Right Feet Pain Score (Numeric/FACES): 7 - Related Data Allergies Allergy/AdvReac Type Severity Reaction Status Date / Time No Known Allergies Allergy Verified 12/01/19 13:05 Home Meds: Home Meds Sertraline [Zoloft] 200 mg PO DAILY 12/31/14 [History] risperiDONE 4 mg PO DAILY 03/13/15 [History] Topiramate 25 mg PO DAILY 08/24/17 [History] Baclofen 20 mg PO TID PRN 06/18/18 [History] Ibuprofen 600 mg PO QID PRN #30 tablet 08/03/18 [Rx] Past Medical History - Past Health History Medical/Surgical History: Denies Medical/Surgical History HEENT History: Reports: Impaired Vision Other HEENT History: Wears contacts. States had gum disease, states has dentures "but they don't fit right. 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: Endometriosis, Musculoskeletal History: Reports: Back Pain, Chronic Neurological History: Reports: Headaches, Chronic Psychiatric History: Reports: Bipolar, Depression, Mood Swings, Schizophrenia Endocrine/Metabolic History: Reports: None Hematologic History: Reports: None Immunologic History: Reports: None Oncologic (Cancer) History: Reports: Other (See Below) Other Oncologic History: lump removed from right breast, not CA Dermatologic History: Reports: None - Infectious Disease History Infectious Disease History: Reports: None - Past Surgical History Head Surgeries/Procedures: Reports: None HEENT Surgical History: Reports: Adenoidectomy, Oral Surgery, Tonsillectomy GI Surgical History: Reports: Hernia, Abdominal Other GI Surgeries/Procedures: laparoscopy Female Surgical History: Reports: Section Other Female Surgeries/Procedures: laproscopy for endometriosis Oncologic Surgical History: Reports: Biopsy of Breast Social & Family History - Family History Family Medical History: No Pertinent Family History HEENT: Reports: None Cardiac: Reports: None Respiratory: Reports: None GI: Reports: None : Reports: None OBGYN: Reports: None Musculoskeletal: Reports: None Neurological: Reports: None Psychiatric: Reports: None Endocrine/Metabolic: Reports: Diabetes Mellitus, Type 3c Hematologic: Reports: None Immunologic: Reports: None Dermatologic: Reports: None Oncologic: Reports: Breast, Colon - Tobacco Use Tobacco Use Status *Q: Current Every Day Tobacco User Years of Tobacco use: 20 Packs/Tins Daily: 1 - Caffeine Use Caffeine Use: Reports: Energy Drinks, Soda - Recreational Drug Use Recreational Drug Type: Reports: Marijuana/Hashish Other Recreational Drug Type: few times per month - Living Situation & Occupation Living situation: Reports: Single, with Significant Other (Boyfriend), with Family (1 child) Occupation: Unemployed Review of Systems - Review of Systems Review Of Systems: See Below Constitutional: Reports: No Symptoms Eyes: Reports: No Symptoms Ears: Reports: No Symptoms Nose: Reports: No Symptoms Mouth/Throat: Reports: No Symptoms Respiratory: Reports: No Symptoms Cardiovascular: Reports: No Symptoms GI/Abdominal: Reports: No Symptoms Genitourinary: Reports: No Symptoms Musculoskeletal: Reports: Foot Pain (right). Denies: Joint Pain, Joint Swelling Skin: Reports: No Symptoms Neurological: Reports: No Symptoms Psychiatric: Reports: No Symptoms ED EXAM, GENERAL - Physical Exam Exam: See Below General Appearance: Alert, WD/WN, No Apparent Distress Ears: Hearing Grossly Normal Nose: Normal Inspection Throat/Mouth: Normal Inspection, Normal Voice, No Airway Compromise Head: Atraumatic, Normocephalic Neck: Normal Inspection, Supple, Non-Tender, Full Range of Motion Respiratory/Chest: No Respiratory Distress Cardiovascular: Normal Peripheral Pulses, Regular Rate, Rhythm, No Edema Peripheral Pulses: 2+: Radial (L), Radial (R), Dorsalis Pedis (L), Dorsalis Pedis (R) (Female) Exam: Deferred Rectal (Female) Exam: Deferred Back Exam: Normal Inspection, Full Range of Motion Extremities: Other (base of 5th metatarsal tender with palpation, unable to bear any weight). No: Joint Swelling Neurological: Alert, Oriented, Normal Cognition Psychiatric: Normal Affect, Normal Mood Skin Exam: Warm, Dry, Intact, Normal Color, No Rash Lymphatic: No Adenopathy Course - Vital Signs Text/Narrative:: Pt initially did not want to have an xray as she states that she knows its not broken and just wants something for the pain. There is no swelling noted however pt does have exquisite tenderness in the 5th metatarsal area with palpation. I have ordered a right ankle and foot xray. Last Recorded V/S: Last Vital Signs Temp 98.2 F 05/02/20 13:56 Pulse 128 H 05/02/20 13:56 Resp 20 05/02/20 13:56 BP 118/77 05/02/20 13:56 Pulse Ox 100 05/02/20 13:56 - Orders/Labs/Meds Orders: Active Orders 24 hr Category Date Time Status Ankle Min 3V Rt [CR] Stat Exams 05/02/20 14:10 Taken Foot Comp Min 3V Rt [CR] Stat Exams 05/02/20 14:10 Taken - Re-Assessments/Exams Free Text/Narrative Re-Assessment/Exam: 05/02/20 14:34 No acute abnormality is noted on right ankle xray or right foot xray. Foot will be kay wrapped and pt will be given crutches. She can follow up with Dr. Tom in a week if it is not better. Recommend that she takes tylenol or ibuprofen for the discomfort. 05/02/20 14:38 Spoke with patient regarding the fact that her foot is not fractured and that I recommend she take ibuprofen or Tylenol for the discomfort. Patient immediately became irritable and states that she came here and it was a waste of her time as she wants something stronger for pain medication. I informed her again that her foot is not fractured and that over time ice, rest, ibuprofen and Tylenol should be adequate for the discomfort. Patient then gets upset and states that this is "bullshit" and that she came here for pain medication and that she is leaving. 05/02/20 14:42 Departure - Departure Time of Disposition: 14:40 Disposition: Home, Self-Care 01 Condition: Good Clinical Impression: Right ankle sprain Qualifiers: Encounter type: initial encounter Involved ligament of ankle: unspecified ligament Qualified Code(s): S93.401A - Sprain of unspecified ligament of right ankle, initial encounter - Discharge Information Instructions: Ankle Sprain, [id number] Referrals: Riya Clemons MD [Primary Care Provider] - Forms: ED Department Discharge Additional Instructions: You were seen in the emergency department today with complaints of pain to your right ankle due to slipping on the ice last evening. X-ray reveals that you do not have any known fracture in your right foot or ankle. Recommend you use ice 20 minutes at a time 3 times a day, rest, and elevate your right foot is much as possible. Also recommend you take Tylenol 650 mg every 4 hours as needed for the discomfort or ibuprofen 600 mg every 6 hours as needed for the discomfort. Do not consume more than 4 g of Tylenol in 24 hours or 3200 mg of ibuprofen in 24 hours. If you are still having discomfort within the next week, please follow-up with Dr. Tom, orthopedic surgeon at [facility] in [place]. Phone number [phone]. Sepsis Event Note (ED) - Evaluation Sepsis Screening Result: No Definite Risk - Focused Exam Vital Signs: Vital Signs Temp Pulse Resp BP Pulse Ox 05/02/20 13:56 98.2 F 128 H 20 118/77 100 - My Orders Last 24 Hours: My Active Orders 05/02/20 14:10 Ankle Min 3V Rt [CR] Stat Foot Comp Min 3V Rt [CR] Stat - Assessment/Plan Last 24 Hours: My Active Orders 05/02/20 14:10 Ankle Min 3V Rt [CR] Stat Foot Comp Min 3V Rt [CR] Stat
--- NOTE | 2020-05-02 15:05 | CR ---
Right foot: 4 views of the right foot were obtained. Joint spaces are preserved. No acute fracture, dislocation or other bony abnormality is appreciated. Impression: 1. Nothing acute is appreciated on right foot exam. Diagnostic code #1
--- NOTE | 2020-05-02 15:05 | CR ---
Right ankle: 4 views of the right ankle were obtained. Comparison: No prior ankle exam is available. Findings: Joint spaces are maintained. No acute fracture, dislocation or other bony abnormality is appreciated. Impression: 1. Nothing acute is seen on right ankle exam. Diagnostic code #1
== END 2020-05-02 14:40 | disposition left against medical advice (07) ==
LOC: JD.ED 13:45
DX: S93.401A Sprain of unspecified ligament of right ankle, initial encounter (principal); Z79.899 Other long term (current) drug therapy; W00.0XXA Fall on same level due to ice and snow, initial encounter; Y93.02 Activity, running; Y92.410 Unspecified street and highway as the place of occurrence of the external cause
CPT/HCPCS: 73610-26-RT; 73610-RT; 73630-26-RT; 73630-RT; 99282; 99283-25

== ENCOUNTER 2023-04-23 09:49 | Emergency (ER) | payer MEDICAID ==
[2023-04-23 10:05] VITALS: BP 149/94; PULSE 100
== END 2023-04-23 11:12 ==
LOC: JD.ED 09:49
DX: Z53.21 Procedure and treatment not carried out due to patient leaving prior to being seen by health care provider (principal)

== ENCOUNTER 2023-10-25 12:22 | Emergency (ER) | payer MEDICAID ==
[2023-10-25 12:44] VITALS: BP 138/84; PULSE 60
[2023-10-25] MEDS: Ketorolac 60 MG/2 ML SDV IM ONE (12:53)
== END 2023-10-25 14:00 | disposition home or self-care (01) ==
LOC: JD.ED 12:22
DX: S82.431A Displaced oblique fracture of shaft of right fibula, initial encounter for closed fracture (principal); S82.831A Other fracture of upper and lower end of right fibula, initial encounter for closed fracture; F17.210 Nicotine dependence, cigarettes, uncomplicated; Z79.899 Other long term (current) drug therapy; W18.09XA Striking against other object with subsequent fall, initial encounter
CPT/HCPCS: 29515; 73610; 96372; 99283; J1885